=== PATIENT | male | born 1965 | race Caucasian/White ===

== ENCOUNTER 2024-08-05 22:41 | Inpatient (IN) ==
[2024-08-05] MEDS: ASPIRIN CHEW 324 MG PO STA (23:00)
[2024-08-05] MEDS: NITROGLYCERIN SL 0.4 MG/TAB TAB SL PRN (23:01)
--- NOTE | 2024-08-05 23:01 | Emergency Department Note ---
History of Present Illness General Chief complaint: Shortness of Breath/Dyspnea Stated complaint: SOB, CHEST PAIN, Time Seen by Provider: 08/05/24 22:46 History of Present Illness Maximum Pain Intensity: 5 This 59-year-old male that smokes presents ER complaining of chest heaviness pressure and shortness of breath for the past few days steadily getting worse. Patient denies fever, chills, abdominal pain, flulike illness. He has had some hemoptysis. No prior history of heart disease. No prior clotting issues that he is aware of. No history of heart failure. Home Medications Medication Instructions Recorded Confirmed Type No Known Home Medications 08/05/24 08/05/24 History Allergies Allergy/AdvReac Type Severity Reaction Status Date / Time fentanyl AdvReac Severe Gastrointestinal Verified 08/05/24 23:57 Upset acetaminophen AdvReac Unknown GI SYMPTOMS Verified 08/05/24 23:57 Past Med/Surg History Problem List (Updated 08/06/24 @ 00:43 by Diana Orr PA-C) Acute pericardial effusion (Acute) Heart failure (Acute) Cervical strain (Acute) Contusion, knee (Acute) Fractured dental sabianism with loss of material (Acute) Knee injury (Acute) Low back pain (Acute) Lumbar strain (Acute) Pain, dental (Acute) Right rib fracture (Acute) Social History Smoking Status: Current every day smoker Tobacco Type: Cigarettes Preferred Language: Burkinan Feels Safe at Home: Yes Review of Systems A total of 10 systems reviewed and were otherwise negative Physical Exam Vital Signs Vital Signs - 24 hr 08/05/24 22:44 08/05/24 22:57 08/05/24 23:06 Temperature 36.6 C Temperature Source Temporal Artery Scan Pulse Rate 107 H 100 H Pulse Rate [Finger] 100 H Pulse Rate from SpO2 Sensor Respiratory Rate 18 24 Respiratory Effort / Characteristics Non-Labored Spontaneous Respiratory Depth Normal Normal Respiratory Pattern Regular Blood Pressure 138/100 Blood Pressure [Right Arm] 119/86 Blood Pressure Mean 112 Blood Pressure Mean [Right Arm] 97 Blood Pressure Position Sitting Pulse Oximetry 97 95 Oxygen Delivery Method Room Air Room Air Sepsis Recent Fever Within 48 Hours No Sepsis New/Unexplained Change in Mental Status N/A Sepsis Action Taken by Nursing No Action Required 08/05/24 23:08 08/05/24 23:10 08/05/24 23:11 Temperature Temperature Source Pulse Rate 96 H Pulse Rate [Finger] Pulse Rate from SpO2 Sensor Respiratory Rate 18 Respiratory Effort / Characteristics Non-Labored Spontaneous Respiratory Depth Respiratory Pattern Blood Pressure Blood Pressure [Right Arm] Blood Pressure Mean Blood Pressure Mean [Right Arm] Blood Pressure Position Pulse Oximetry 98 98 Oxygen Delivery Method Room Air Room Air Room Air Sepsis Recent Fever Within 48 Hours Sepsis New/Unexplained Change in Mental Status Sepsis Action Taken by Nursing 08/05/24 23:30 08/06/24 00:00 Temperature Temperature Source Pulse Rate 96 H 98 H Pulse Rate [Finger] Pulse Rate from SpO2 Sensor 98 H Respiratory Rate 24 22 Respiratory Effort / Characteristics Respiratory Depth Respiratory Pattern Blood Pressure 127/98 121/93 Blood Pressure [Right Arm] Blood Pressure Mean 107 99 Blood Pressure Mean [Right Arm] Blood Pressure Position Pulse Oximetry 98 96 Oxygen Delivery Method Sepsis Recent Fever Within 48 Hours Sepsis New/Unexplained Change in Mental Status Sepsis Action Taken by Nursing VITALS: Vitals are noted on the nurse's note and reviewed by myself. Vital signs stable. GENERAL: Pleasant male mildly diaphoretic, in no acute distress, nondiaphoretic, well-developed well-nourished. SKIN: Capillary reflex less than 2 seconds. HEENT: Normocephalic. PERRLA. EOMI. Nares patent. Mucous membranes moist. Neck is supple without nuchal rigidity. HEART: Regular rate and rhythm LUNGS: Clear to auscultation bilaterally without wheezes, rales or rhonchi. No retractions or accessory muscle use. ABDOMEN: Positive bowel sounds x 4. Normal tympanic percussion. Soft, nontender, without masses or organomegaly. Becerra sign negative. No guarding or rebound tenderness. no CVA tenderness MUSCULOSKELETAL: No gross musculoskeletal defects. Minimal pitting edema to the lower extremities. NEURO: Patient was alert and oriented to person place and time. No focal neurological deficits. Course Administered Medications Nitroglycerin (Nitroglycerin Sl 0.4 Mg/Tab Tab) 0.4 mg SL Q5M PRN PRN Reason: Chest Pain Stop: 09/04/24 22:55 Last Admin: 08/05/24 23:01 Dose: 0.4 mg Documented By: KAYA Discontinued Medications Aspirin (Aspirin Chew 324 Mg) 324 mg PO NOW STA Stop: 08/05/24 22:57 Last Admin: 08/05/24 23:00 Dose: 324 mg Documented By: KAYA Furosemide (Furosemide 40 Mg/4 Ml Vial) 40 mg IV ONE ONE Stop: 08/05/24 23:24 Last Admin: 08/05/24 23:34 Dose: 40 mg Documented By: KAYA Piperacillin Sod/Tazobactam Sod (Zosyn) 4.5 gm in 100 mls @ 200 mls/hr IV NOW ONE; Protocol Stop: 08/06/24 00:07 Last Admin: 08/06/24 00:15 Dose: 200 mls/hr Documented By: SUSANNA Ioversol (Optiray 320 125ml) 125 ml IV ONCE ONE Stop: 08/05/24 23:22 Last Admin: 08/05/24 23:21 Dose: 118 ml Documented By: ADRIANA Nitroglycerin (Nitroglycerin 2% Ointment 30gm Tube) 0.5 inch EXT NOW ONE Stop: 08/05/24 23:26 Last Admin: 08/05/24 23:34 Dose: 0.5 inch Documented By: KAYA Medical Decision Making Medical Records Attestation: I reviewed the patient's medical records. Home Medications Current Medication List: was personally reviewed by me Laboratory Data Attestation: I reviewed the patient's lab results. 08/05/24 23:00 08/05/24 23:00 Lab Results 08/05/24 08/05/24 Range/Units 23:00 23:25 WBC 11.49 H (4.8-10.8) K/ul RBC 4.92 (4.70-6.10) M/uL Hgb 14.7 (14.0-18.0) g/dl Hct 45.5 (42.0-52.0) % MCV 92.5 (80.0-100.0) fL MCH 29.9 (25.0-34.0) pg MCHC 32.3 (32.0-36.0) g/dL RDW Std Deviation 44.7 (36.4-46.3) fL RDW Coeff of Isaías 13.2 (11.5-14.5) % Plt Count 241 (130-400) K/uL MPV 10.4 (9.4-12.4) fL Immature Gran % (Auto) 0.3 % Neut % (Auto) 82.6 % Lymph % (Auto) 10.1 % Glades % (Auto) 5.5 % Eos % (Auto) 1.0 % Baso % (Auto) 0.5 % Neut # (Auto) 9.49 H (1.40-6.50) K/uL Lymph # (Auto) 1.16 L (1.20-3.40) K/uL Glades # (Auto) 0.63 H (0.11-0.59) K/uL Eos # (Auto) 0.12 (0.00-0.50) K/uL Baso # (Auto) 0.06 (0.00-0.20) K/uL Immature Gran # (Auto) 0.03 (0.01-0.20) K/uL Sodium 139 (136-145) mmol/L Potassium 4.6 (3.5-5.1) mmol/L Chloride 105 (98-107) mmol/L Carbon Dioxide 28 (21-32) mmol/L Anion Gap 6 (3-11) BUN 17 (6-23) mg/dl Creatinine 1.06 (0.6-1.4) mg/dl Est Cr Clr Drug Dosing 77.9 ml/min eGFR 79.85 BUN/Creatinine Ratio 16.0 (10-20) Glucose 159 H (70-99(Fasting)) mg/dl Calcium 9.3 (8.6-10.3) mg/dl Total Bilirubin 0.8 (0.2-1.0) mg/dl AST 23 (13-39) U/L ALT 47 (7-52) U/L Alkaline Phosphatase 85 (34-104) U/L Troponin I High Sens 27.0 H (0-20) pg/ml B-Natriuretic Peptide 860 H (0-100) pg/ml Total Protein 6.5 (6.0-8.3) gm/dl Albumin 3.9 (3.4-5.0) gm/dl Globulin 2.6 (2.5-4.0) gm/dl Albumin/Globulin Ratio 1.5 (0.9-2) Lipase 23 (11-82) U/L Imaging Data Attestation: I personally reviewed and interpreted this imaging study as follows: Radiologist's Impression: Chest CTA 08/05/24 22:57 Exam(s): CTA CHEST IV Amt: 118 ml optiray 320 EXAM: CT Angiography Chest With Intravenous Contrast CLINICAL HISTORY: Reported shortness of breath and chest pain over the few weeks, increasing over the last 2 days. TECHNIQUE: Axial computed tomographic angiography images of the chest with intravenous contrast. CTDI is 32.8 mGy and DLP is 729.78 mGy-cm. Automated exposure control was utilized for the study. A dose lowering technique was utilized adhering to the principles of ALARA. MIP reconstructed images were created and reviewed. COMPARISON: No relevant prior studies available. FINDINGS: Pulmonary arteries: Accounting for limitations with respiratory artifact, there is no definite evidence for pulmonary embolism. Aorta: The unenhanced thoracic aorta is normal in caliber. No thoracic aortic aneurysm. Lungs: Peribronchial cuffing, most notable in the right lower lobe with diffuse areas of interlobular septal thickening. In addition, there are asymmetric patchy opacities in the central and inferior right upper lobe. Pleural space: Mild to moderate right and moderate left pleural effusions, measuring up to 3.5 cm on the left. In addition, there is a subpulmonic component of the left pleural effusion measuring 4 cm in diameter. No loculation. No pneumothorax. Heart: Cardiomegaly of unknown chronicity with asymmetric dilation of the left ventricle. Trace pericardial effusion. Bones/joints: No acute fracture. No dislocation. Soft tissues: Unremarkable. Lymph nodes: Nonspecific scattered paratracheal and AP window lymph nodes. No enlarged lymph nodes. IMPRESSION: 1. Accounting for limitations with respiratory artifact, there is no definite evidence for pulmonary embolism. 2. Peribronchial cuffing, most notable in the right lower lobe with diffuse areas of interlobular septal thickening. In addition, there are asymmetric patchy opacities in the central and inferior right upper lobe. Findings are most consistent with interstitial edema. The airspace opacities are atypical for asymmetric alveolar edema, which raises the suspicion for subtle aspiration or pneumonia. 3. Mild to moderate right and moderate left pleural effusions, measuring up to 3.5 cm on the left. In addition, there is a subpulmonic component of the left pleural effusion measuring 4 cm in diameter. No loculation. 4. Cardiomegaly of unknown chronicity with asymmetric dilation of the left ventricle. Trace pericardial effusion. Electronically signed by: Aidan Milligan MD 08/05/24 23:37 PM [facility] Narrative Prior records/ancillary studies reviewed. Triage Nursing notes reviewed. Additional history obtained from family. The patient's history was concerning for chest pain. Differential diagnosis: Etiologies such as cardiac ischemia, aortic dissection, pulmonary embolism, pneumonia, pneumothorax, musculoskeletal, infections, pericarditis, myocarditis, esophageal rupture, gastrointestinal, as well as others were entertained. Physical examination: As above. ER treatment provided: An order was placed for continuous cardiac monitoring. The monitor shows a rate of 60-100 with a sinus rhythm per my interpretation. Aspirin and nitroglycerin Nitropaste and Zosyn On reassessment the patient felt better. Diagnostic interpretation by me: #1 the electrocardiogram was ordered for chest pain EKG: Poor baseline, normal sinus, left bundle, left axis, occasional PVC. Impression normal sinus rhythm with a left bundle branch block left axis deviation occasional PVC independently interpreted by myself I think arrhythmia is unlikely. EKG shows normal sinus rhythm with no interval abnormalities such as QT prolongation or WPW. There are no findings to suggest Brugada syndrome. Cardiac monitoring in the emergency department reveals no tachycardic or bradycardic dysrhythmia. Hypertrophic cardiomyopathy was considered but there are no clear historical elements pointing toward this. EKG is not suggestive. The QRS voltage is not extremely large and there are no suggestive Q waves. #2 EKG ordered for chest pain EKG: Normal sinus, left axis, left bundle, rate of 97. Impression left bundle branch block with a left axis deviation independently interpreted by myself The labs Independently Interpreted by myself revealed minimally elevated troponin repeat was ordered Imaging studies: CTA as above HEART SCORE: Hx: high/mod/low suspicion: 1 ECG: ST depression/nonspecific changes/normal: 1 Age: Greater than 65/45-64/less than 45: 1 Risk factors: (Hypertension, hyperlipidemia, diabetes, coronary disease, tobacco use, cocaine use): 1 Troponin: Greater than 2 times normal limits/1-2 times normal limits/normal: 1 Total: 5 Consultation: A consultation was placed with the hospitalist. The case was discussed and diagnostics were reviewed. The patient was evaluated in the ER for further treatment. Exam and history seen consistent with new onset heart failure. CTA was concerning for possible aspiration pneumonia. Patient was started on antibiotics. He felt better with nitroglycerin. Paste was applied. Patient was admitted to the medical service. By the evaluation outlined above emergent etiologies such as aortic dissection, pulmonary embolism, pneumothorax, gastrointestinal, as well as others were deemed relatively unlikely. The pt informed about the findings as listed above. All questions were answered and pleased with the treatment. The chart was completed utilizing [employer] Speech voice recognition software. Grammatical errors, random word insertions, pronoun errors, and incomplete sentences are an occassional consequence of this system due to software limitations, ambient noise, and hardware issues. Any formal questions or concerns about the content, text, or information contained within the body of this dictation should be directly addressed to the physician speech assistant for clarification. Impression & Plan Heart failure, Acute pericardial effusion Discharge Plan Visit Data Chief Complaint: Shortness of Breath/Dyspnea Stated Complaint: SOB, CHEST PAIN, ED Provider: Katie Oliva ED Midlevel Provider: Diana Orr Discharge Problem: Heart failure, Acute pericardial effusion Patient Disposition: Admitted As Inpatient Condition: Fair Forms Stand Alone Forms: [facility] Prescriptions Prescriptions: No Action No Known Home Medications Referrals Referrals: Dinah Lunsford PA-C [Outside Practitioners] - Discharge Problem: Heart failure Qualifiers: Heart failure type: unspecified Heart failure chronicity: acute Qualified Code(s): I50.9 - Heart failure, unspecified
[2024-08-05 23:19] LABS: Basophils # (auto) 0.06 K/uL (0.00-0.20); Basophils % (auto) 0.5 %; Eosinophils # (auto) 0.12 K/uL (0.00-0.50); Hematocrit (blood only) 45.5 % (42.0-52.0); Hemoglobin 14.7 g/dl (14.0-18.0); Immature Granulocytes # (auto) 0.03 K/uL (0.01-0.20); Immature Granulocytes % (auto) 0.3 %; Lymphocytes # (auto) 1.16 K/uL (1.20-3.40); Lymphocytes % (auto) 10.1 %; Mean Corpuscular Hemoglobin 29.9 pg (25.0-34.0); Mean Corpuscular Hgb Conc 32.3 g/dL (32.0-36.0); Mean Corpuscular Volume 92.5 fL (80.0-100.0); Mean Platelet Volume 10.4 fL (9.4-12.4); Monocytes # (auto) 0.63 K/uL (0.11-0.59); Monocytes % (auto) 5.5 %; Neutrophils # (auto) 9.49 K/uL (1.40-6.50); Neutrophils % (auto) 82.6 %; Platelet Count 241 K/uL (130-400); RDW Coefficient of Variation 13.2 % (11.5-14.5); RDW Standard Deviation 44.7 fL (36.4-46.3); Red Blood Count 4.92 M/uL (4.70-6.10); White Blood Count 11.49 K/ul (4.8-10.8)
[2024-08-05] MEDS: OPTIRAY 320 125ml IV ONE (23:21)
[2024-08-05 23:32] LABS: Albumin Globulin Ratio 1.5 (0.9-2); Albumin Level 3.9 gm/dl (3.4-5.0); Bilirubin,Total 0.8 mg/dl (0.2-1.0); Calcium 9.3 mg/dl (8.6-10.3); Creatinine Clr Calc Pharmacy 77.9 ml/min; Globulin 2.6 gm/dl (2.5-4.0); Potassium 4.6 mmol/L (3.5-5.1); Total Protein 6.5 gm/dl (6.0-8.3)
[2024-08-05] MEDS: FUROSEMIDE 40 MG/4 ML VIAL IV ONE (23:34)
[2024-08-05] MEDS: NITROGLYCERIN 2% OINTMENT 30GM TUBE EXT ONE (23:34)
--- NOTE | 2024-08-05 23:38 | CT Scan Report ---
Exam(s): CTA CHEST IV Amt: 118 ml optiray 320 EXAM: CT Angiography Chest With Intravenous Contrast CLINICAL HISTORY: Reported shortness of breath and chest pain over the few weeks, increasing over the last 2 days. TECHNIQUE: Axial computed tomographic angiography images of the chest with intravenous contrast. CTDI is 32.8 mGy and DLP is 729.78 mGy-cm. Automated exposure control was utilized for the study. A dose lowering technique was utilized adhering to the principles of ALARA. MIP reconstructed images were created and reviewed. COMPARISON: No relevant prior studies available. FINDINGS: Pulmonary arteries: Accounting for limitations with respiratory artifact, there is no definite evidence for pulmonary embolism. Aorta: The unenhanced thoracic aorta is normal in caliber. No thoracic aortic aneurysm. Lungs: Peribronchial cuffing, most notable in the right lower lobe with diffuse areas of interlobular septal thickening. In addition, there are asymmetric patchy opacities in the central and inferior right upper lobe. Pleural space: Mild to moderate right and moderate left pleural effusions, measuring up to 3.5 cm on the left. In addition, there is a subpulmonic component of the left pleural effusion measuring 4 cm in diameter. No loculation. No pneumothorax. Heart: Cardiomegaly of unknown chronicity with asymmetric dilation of the left ventricle. Trace pericardial effusion. Bones/joints: No acute fracture. No dislocation. Soft tissues: Unremarkable. Lymph nodes: Nonspecific scattered paratracheal and AP window lymph nodes. No enlarged lymph nodes. IMPRESSION: 1. Accounting for limitations with respiratory artifact, there is no definite evidence for pulmonary embolism. 2. Peribronchial cuffing, most notable in the right lower lobe with diffuse areas of interlobular septal thickening. In addition, there are asymmetric patchy opacities in the central and inferior right upper lobe. Findings are most consistent with interstitial edema. The airspace opacities are atypical for asymmetric alveolar edema, which raises the suspicion for subtle aspiration or pneumonia. 3. Mild to moderate right and moderate left pleural effusions, measuring up to 3.5 cm on the left. In addition, there is a subpulmonic component of the left pleural effusion measuring 4 cm in diameter. No loculation. 4. Cardiomegaly of unknown chronicity with asymmetric dilation of the left ventricle. Trace pericardial effusion. Electronically signed by: Aidan Milligan MD 08/05/24 23:37 PM
--- NOTE | 2024-08-06 00:03 | History & Physical Report ---
Date of Service August 06, 2024 Assessment & Plan (1) COVID-19: Plan: #Chest Pain #Shortness of Breath DDx including but not limited to - ACS, pericarditis, myocarditis, pericardial effusion, pleural effusion, PE, PNA, PTX, uncompensated HF, COPD. CT with pericardial effusion and bilateral pleural effusions. There may also be an underlying pneumonia. Ordered ECHO. Found to be covid positive. May be the cause of pleural and pericardial effusions. BNP elevated at 860. Trop peaked at 27.0. Some improvement with Lasix 40 mg IV. Continue diuresis as indicated. Started dex 6 mg. ED started Zosyn for possible aspiration/atypical pneumonia. No further abx ordered. Cardiology consult - appreciate recs. Did start daily ASA. Ordered lipids, TSH, HbA1c cards consult, ECHO Zosyn x 1, no further abx ordered diuresis as indicated dex 6 mg Q24H sputum Cx, blood Cx ordered maintain CP free - nitropaste, SL nitro, morphine HbA1c, TSH, lipids ordered (2) Acute pericardial effusion: Plan: Most likely reason for CP. ECHO and cardiology consult as above. If uncompensated HF would start GDMT. Could consider colchicine initiation 0.6 mg BID for acute pericardial inflammatory syndrome. (3) Pleural effusion: Plan: See above (4) Chest pain: Plan: Trop peaked at 27.0. (5) Tobacco use disorder: Plan: Declines nicotine patch. Would strongly recommend cessation. (6) Alcohol use disorder in remission: Plan: Continue with abstinence. Plan Code status: full DVT ppx: SCDs, ambulation FENGI: NPO until seen by cards Dispo: PCU/Tele Covid Precautions History of Present Illness Chief Complaint: CP/SOB Primary Care Provider: John Duval MD 59 y/o male presenting with progressive SOB, cough, and chest pressure. Symptoms started a few weeks ago with cough, congestion, and shortness of breath. Patient's cough is productive of dry/powdery green mucous. Has had occasional hemoptysis as well. Patient has also noticed worsening chest pressure/SOB when laying flat. Feels more comfortable standing up. He has had BLE ankle/foot swelling for some time. Has noticed increased swelling/tightness of his pants around the waist. No n/v/abdominal pain/calf pain/unilateral swelling. No fevers, but he has been having chills. 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 Was likely exposed to several respiratory irritants at that time without a mask. Friend who worked in the basement with him did also get sick, but improved more quickly. Patient is also a long time smoker. Previously smoking about a PPD, down to 1/2 PPD now. Was a prior heavy drinker for many years. No longer drinking. Patient was given 324 ASA chew, 40 mg IV Lasix, SL nitro, and nitro paste in the ED. Patient CP free upon my interview and breathing much more comfortably. CT Chest with bilateral pleural effusions. There may be an underlying pneumonia as well. Patient started on Zosyn in the ED. Patient has not seen in a doctor in some time, but does have an appointment scheduled for next week for routine care. No current home meds. Allergies Allergy/AdvReac Type Severity Reaction Status Date / Time fentanyl AdvReac Severe Gastrointestinal Verified 08/05/24 23:57 Upset acetaminophen AdvReac Unknown GI SYMPTOMS Verified 08/05/24 23:57 Home Medications Medication Instructions Recorded Confirmed Type No Known Home Medications 08/05/24 08/05/24 History Past Med/Surg History Problem List (Updated 08/06/24 @ 11:07 by Medhat Carias MD) Acute heart failure with reduced ejection fraction (HFrEF, <= 40%) Alcohol use disorder in remission Tobacco use disorder Chest pain Pleural effusion COVID-19 Acute pericardial effusion (Acute) Heart failure (Acute) Cervical strain (Acute) Contusion, knee (Acute) 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) Knee injury (Acute) Low back pain (Acute) Lumbar strain (Acute) Pain, dental (Acute) Right rib fracture (Acute) Social History Smoking Status: Current every day smoker Tobacco Type: Cigarettes Cigarettes Per Day: half a pack a day; Second Hand Exposure: No; Do You Dip or Chew Tobacco: No; Tobacco Cessation Education Requested by Patient: No Hx Alcohol Use: Yes Alcohol type: beer Hx Substance Use: No Preferred Language: Gabonese Communication Ability: Effective Shactor Required: No Beliefs That Will Affect Care: None Current Living Situation: Significant Other Current Living Situation Comment: lives at home w/ girlfriend Other Information That Helps Us Care for You: No Feels Safe at Home: Yes Safety Concerns: Feels Safe At This Time Assistive Devices: None Review of Systems 2 Review of Systems: See HPI Physical Exam 2 Physical Exam: Gen: patient appears older than stated age, no distress, mild discomfort with breathing HEENT: AT NC MMM Resp: Quiet at the bilateral bases, relatively good air movement, no wheezing/crackles noted, no increased work of breathing CV: RRR no m/r/g clinically well perfused 2+ pitting edema BLE Abd: soft, non-tender, non-distended MSK: no obvious deformities Skin: no rashes or bruising Neuro: alert and oriented Psych: appropriate mood and affect Results & Data Results & Data Vital Signs (Past 12 Hours) Vital Signs Temp Pulse Pulse Resp BP BP Pulse Ox 08/05/24 23:30 96 H 24 127/98 98 08/05/24 23:11 96 H 18 98 08/05/24 23:10 98 08/05/24 23:08 08/05/24 23:06 100 H 24 119/86 95 08/05/24 22:57 100 H 08/05/24 22:44 36.6 C 107 H 18 138/100 97 O2 Del Method 08/05/24 23:30 08/05/24 23:11 Room Air 08/05/24 23:10 Room Air 08/05/24 23:08 Room Air 08/05/24 23:06 Room Air 08/05/24 22:57 08/05/24 22:44 Room Air Laboratory Results 08/05/24 23:00 08/05/24 23:00 Diagnostic Findings Chest CTA 08/05/24 22:57 FINDINGS: Pulmonary arteries: Accounting for limitations with respiratory artifact, there is no definite evidence for pulmonary embolism. Aorta: The unenhanced thoracic aorta is normal in caliber. No thoracic aortic aneurysm. Lungs: Peribronchial cuffing, most notable in the right lower lobe with diffuse areas of interlobular septal thickening. In addition, there are asymmetric patchy opacities in the central and inferior right upper lobe. Pleural space: Mild to moderate right and moderate left pleural effusions, measuring up to 3.5 cm on the left. In addition, there is a subpulmonic component of the left pleural effusion measuring 4 cm in diameter. No loculation. No pneumothorax. Heart: Cardiomegaly of unknown chronicity with asymmetric dilation of the left ventricle. Trace pericardial effusion. Bones/joints: No acute fracture. No dislocation. Soft tissues: Unremarkable. Lymph nodes: Nonspecific scattered paratracheal and AP window lymph nodes. No enlarged lymph nodes. IMPRESSION: 1. Accounting for limitations with respiratory artifact, there is no definite evidence for pulmonary embolism. 2. Peribronchial cuffing, most notable in the right lower lobe with diffuse areas of interlobular septal thickening. In addition, there are asymmetric patchy opacities in the central and inferior right upper lobe. Findings are most consistent with interstitial edema. The airspace opacities are atypical for asymmetric alveolar edema, which raises the suspicion for subtle aspiration or pneumonia. 3. Mild to moderate right and moderate left pleural effusions, measuring up to 3.5 cm on the left. In addition, there is a subpulmonic component of the left pleural effusion measuring 4 cm in diameter. No loculation. 4. Cardiomegaly of unknown chronicity with asymmetric dilation of the left ventricle. Trace pericardial effusion. Supervising Physician Co-Signing Physician Notes Attending addendum: I have physically seen this patient, have supervised the medical residents activities, and agree with the H&P unless as otherwise noted. Assessment and Plan: Elevated troponin/pleural effusion left greater than right/acute CHF- The patient will be admitted to telemetry for serial cardiac enzymes, serial EKG's, cardiac rhythm monitoring and a 2-D echocardiogram with Dopplers. Troponin 27.0, with follow-up pending BNP 860 From the ED patient received the following: Aspirin 324 mg, furosemide 40 mg IV, Nitropaste 1/2 inch EKG with normal sinus rhythm with left bundle branch block, new compared to sinus bradycardia of 2017. No acute ST-T changes Aspirin 81 mg daily Furosemide 40 mg IV every morning Consult cardiology in the a.m. COVID- COVID precautions Give dexamethasone 6 mg IV every 24 hours Follow sputum culture and Gram stain Within the differential is possible pericardial effusion and pleural effusions secondary to COVID Tobacco use disorder- Patient prefers no nicotine patch Cessation counseling Alcohol use disorder in remission- Continued encouraged Resident Activity Tracking Resident Involvement: Resident Care Provided Care Provided: Adult Hospital Medicine
[2024-08-06] MEDS: PIPERACILLIN/TAZOBACTAM 4.5 GM/100 ML BAG IV ONE (00:15)
[2024-08-06 00:53] LABS: Magnesium 1.7 mg/dl (1.7-2.4)
[2024-08-06 00:56] LABS: Adenovirus PCR Not Detected (NotDetected); Bordetella parapertussis PCR Not Detected (NotDetected); Bordetella pertussis PCR Not Detected (NotDetected); Chlamydia pneumoniae PCR Not Detected (NotDetected); Coronavirus 229E PCR Not Detected (NotDetected); Coronavirus CoV-2 (COVID19)PCR DETECTED (NotDetected); Coronavirus HKU1 PCR Not Detected (NotDetected); Coronavirus NL63 PCR Not Detected (NotDetected); Coronavirus OC43PCR Not Detected (NotDetected); Human Metapneumovirus PCR Not Detected (NotDetected); Influenza A PCR Not Detected (NotDetected); Influenza B PCR Not Detected (NotDetected); Mycoplasma pneumoniae PCR Not Detected (NotDetected); Parainfluenza Virus 1 PCR Not Detected (NotDetected); Parainfluenza Virus 2 PCR Not Detected (NotDetected); Parainfluenza Virus 3 PCR Not Detected (NotDetected); Parainfluenza Virus 4 PCR Not Detected (NotDetected); Respiratory Syncytial VirusPCR Not Detected (NotDetected); Rhinovirus/Enterovirus PCR Not Detected (NotDetected)
[2024-08-06 01:09] LABS: Thyroid Stimulating Hormone 0.912 uIu/ml (0.300-4.500)
[2024-08-06] MEDS: dexAMETHasone 6 MG in SYRINGE 0 ML IV SCH (02:01)
[2024-08-06] MEDS ORDERED: ACETAMINOPHEN 500 MG TAB PO PRN (02:37)
[2024-08-06] MEDS ORDERED: POLYETHYLENE (MIRALAX) 17 GM PACK PO PRN (02:37)
[2024-08-06] MEDS ORDERED: ONDANSETRON INJ 2 MG/ML 2 ML VIAL IV PRN (02:37)
[2024-08-06] MEDS ORDERED: ALUMINUM/MAGNESIUM SUSP 30 ML UDC PO PRN (02:37)
[2024-08-06 03:14] LABS: INR 0.9 (0.9-1.1); Partial Thromboplastin Time 26 Seconds (21-31); Prothrombin Time 10.3 Seconds (9.0-12.0)
--- NOTE | 2024-08-06 07:35 | Electrocardiogram Report ---
Test Reason : Blood Pressure : */* mmHG Vent. Rate : 97 BPM Atrial Rate : 97 BPM P-R Int : 140 ms QRS Dur : 160 ms QT Int : 408 ms P-R-T Axes : 62 -40 104 degrees QTcB Int : 518 ms Normal sinus rhythm Possible Left atrial enlargement Left axis deviation Left bundle branch block Abnormal ECG No previous ECGs available Confirmed by Rod Myers ([id number]) on 08/06/2024 7:34:51 AM Referred By: REFERRED SELF Confirmed By: Rod Myers
[2024-08-06] MEDS: ASPIRIN 81 MG ECTAB PO SCH (08:13)
[2024-08-06] MEDS: FUROSEMIDE INJ 20 MG/2 ML VIAL IV ONE ×2 (08:13→15:25)
[2024-08-06 08:25] LABS: Hematocrit (blood only) 43.7 % (42.0-52.0); Mean Corpuscular Hemoglobin 30.5 pg (25.0-34.0); Mean Corpuscular Hgb Conc 34.3 g/dL (32.0-36.0); Mean Corpuscular Volume 88.8 fL (80.0-100.0); Mean Platelet Volume 10.8 fL (9.4-12.4); Platelet Count 259 K/uL (130-400); RDW Coefficient of Variation 12.9 % (11.5-14.5); RDW Standard Deviation 42.2 fL (36.4-46.3); Red Blood Count 4.92 M/uL (4.70-6.10); White Blood Count 11.17 K/ul (4.8-10.8)
[2024-08-06 08:52] LABS: BUN Creatinine Ratio 14.2 (10-20); Calcium 9.5 mg/dl (8.6-10.3); Chol HDL Ratio 3.7 (0-5); Creatinine Clr Calc Pharmacy 53.1 ml/min; Potassium 4.3 mmol/L (3.5-5.1)
[2024-08-06 09:07] LABS: Estimated Average Glucose 140 mg/dl; Hemoglobin A1C 6.5 % (4.5-5.6)
--- NOTE | 2024-08-06 09:51 | XCELERA ---
[id number]
[2024-08-06] MEDS: NICOTINE 14 MG/24 HR PATCH TD SCH (10:53)
--- NOTE | 2024-08-06 10:53 | Pre Anesthesia Assessment ---
Date of Service August 06, 2024 Pre Sedation Assessment Vital Signs Temp Pulse Pulse Resp BP BP Pulse Ox 08/06/24 07:56 98.1 F 90 18 117/78 91 08/06/24 02:59 08/06/24 02:38 97.7 F 99 H 18 125/79 99 08/06/24 02:30 96 H 08/06/24 01:30 92 H 20 120/77 94 08/06/24 01:00 93 H 22 119/81 97 08/06/24 00:52 93 H 22 116/86 96 08/06/24 00:00 98 H 22 121/93 96 08/05/24 23:30 96 H 24 127/98 98 08/05/24 23:11 96 H 18 98 08/05/24 23:10 98 08/05/24 23:08 08/05/24 23:06 100 H 24 119/86 95 08/05/24 22:57 100 H 08/05/24 22:44 97.9 F 107 H 18 138/100 97 O2 Del Method 08/06/24 07:56 Room Air 08/06/24 02:59 Room Air 08/06/24 02:38 Room Air 08/06/24 02:30 08/06/24 01:30 08/06/24 01:00 08/06/24 00:52 08/06/24 00:00 08/05/24 23:30 08/05/24 23:11 Room Air 08/05/24 23:10 Room Air 08/05/24 23:08 Room Air 08/05/24 23:06 Room Air 08/05/24 22:57 08/05/24 22:44 Room Air Cardiovascular + regular rate Respiratory + respiratory effort normal Pre-Sedation Airway Assessment Smoking Status: Current every day smoker Hx Sleep Apnea: No Hx Difficult Intubation: No Short, Thick Neck: No Thyromental Distance: < 3.5 Finger Breadths Oral Cavity: + Dental Abnormalities Mallampati Class: III ASA: ASA3 Procedure Planning Contraindications for Sedation: none Current Medications Reviewed: Yes Notes The planned sedation has been discussed with the patient. Informed Consent was obtained. I have identified the patient, determined the appropriateness of sedation and have assessed the patient immediately prior to the procedure. All medicine(s) and interventions are by my order.
--- NOTE | 2024-08-06 11:02 | Cardiology Consultation ---
Date of Consultation August 06, 2024 Assessment & Plan (1) Acute heart failure with reduced ejection fraction (HFrEF, <= 40%): 2. CardiomyopathyEF 10 to 15% with global LV dysfunction 3. Mild mitral regurgitation 4. Moderate CAD - 60-70% mRCA, 30-40% prox to mid LAD at bifurcation with 50% ostial D1 5. COVID-19 infection 6. History of alcohol abuse 7. Ongoing smoking 8. Borderline DM2 - A1c 6.5 Admitted with acute heart failure with new dilated cardiomyopathy, EF 15% in the setting of COVID-19 infection. Cardiac catheterization this morning shows nonobstructive CAD. Cardiomyopathy is nonischemic. Suspect likely viral. Also has heavy alcohol use history although reportedly significantly less for years. Has responded well to IV diuresis, negative almost 2 L, dyspnea/orthopnea improved. LV filling pressures still elevated on cath. Plan: Additional IV diuresis today, will give another dose of IV Lasix this afternoon Salt restriction, strict I's and O's, standing daily weight Possible transition to p.o. diuretics tomorrow Start GDMT. Start metoprolol 25 mg twice daily. Transition to Toprol-XL on discharge Start Entresto 2426 tonight, empagliflozin tomorrow. Check with case management to make feasible from cost standpoint MRA likely as an outpatient as BP allows Continue aspirin, start statin Referral to CHF program on discharge With NICM can defer LifeVest Will follow History of Present Illness Attending Physician: Diogenes Craig MD History of Present Illness Mr. Sun is a 59-year-old man seen today in the setting of new acute heart failure. At baseline patient healthy has chronic back issues but is on no medications. He has a history of heavy alcohol abuse but drastically cut back several years ago now mostly social. Ongoing smoker for 30 years. States for the last 3 weeks has had progressive shortness of breath associated with chest tightness primarily when lying down. For the last few days has been unable to sleep due to shortness of breath. Accompanied by bilateral lower extremity edema. During this time has also had intermittent fevers/chills and productive cough of green sputum. Yesterday he was encouraged to go to ED after had several episodes of mild hemoptysis. In ED viral panel positive for COVID-19. ECG showed left bundle branch block. HS TropI flat 2627. BNP elevated at 860. CTA negative for PE. Moderate bilateral pleural effusions with mild interstitial edema. Received IV Lasix x 1 yesterday and -1900 overnight. Also treated for COVID with steroids, remdesivir. Today reports breathing/chest tightness much improved, near baseline. Echocardiogram showed dilated LV with severe global LV dysfunction EF10-15%, mild MR. No real significant cardiac history. Reports palpitations years ago for which had Holter, echo that reportedly was unremarkable. 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 Lives with girlfriend. Family history: No known history of premature CAD, cardiomyopathy Allergies Allergy/AdvReac Type Severity Reaction Status Date / Time fentanyl AdvReac Severe Gastrointestinal Verified 08/05/24 23:57 Upset acetaminophen AdvReac Unknown GI SYMPTOMS Verified 08/05/24 23:57 Home Medications Medication Instructions Recorded Confirmed Type No Known Home Medications 08/05/24 08/05/24 History Patient History Social History Smoking Status: Current every day smoker Tobacco Type: Cigarettes Cigarettes Per Day: half a pack a day; Second Hand Exposure: No; Do You Dip or Chew Tobacco: No; Tobacco Cessation Education Requested by Patient: No Hx Alcohol Use: Yes Alcohol type: beer Hx Substance Use: No Preferred Language: Romansh Communication Ability: Effective Agriculture Specialist Required: No Beliefs That Will Affect Care: None Current Living Situation: Significant Other Current Living Situation Comment: lives at home w/ girlfriend Other Information That Helps Us Care for You: No Feels Safe at Home: Yes Safety Concerns: Feels Safe At This Time Assistive Devices: None Review of Systems Review of Systems: All systems reviewed & are unremarkable except as noted in HPI & below Physical Exam Physical Exam: General: Comfortable HEENT: Sclerae anicteric Lungs: Clear to auscultation bilaterally Cardiac: Regular rate and rhythm, no murmurs. No JVD Vascular: 2+ radial, PT pulses Abdomen: Soft, nontender Extremities: Well perfused, no peripheral edema Neuro: Nonfocal Psych: Alert orient x3, normal affect and mood Results & Data Vital Signs (Past 12 Hours) Vital Signs Temp Pulse Pulse Resp BP BP Pulse Ox 08/06/24 07:56 98.1 F 90 18 117/78 91 08/06/24 02:59 08/06/24 02:38 97.7 F 99 H 18 125/79 99 08/06/24 02:30 96 H 08/06/24 01:30 92 H 20 120/77 94 08/06/24 01:00 93 H 22 119/81 97 08/06/24 00:52 93 H 22 116/86 96 08/06/24 00:00 98 H 22 121/93 96 08/05/24 23:30 96 H 24 127/98 98 08/05/24 23:11 96 H 18 98 08/05/24 23:10 98 08/05/24 23:08 08/05/24 23:06 100 H 24 119/86 95 08/05/24 22:57 100 H O2 Del Method 08/06/24 07:56 Room Air 08/06/24 02:59 Room Air 08/06/24 02:38 Room Air 08/06/24 02:30 08/06/24 01:30 08/06/24 01:00 08/06/24 00:52 08/06/24 00:00 08/05/24 23:30 08/05/24 23:11 Room Air 08/05/24 23:10 Room Air 08/05/24 23:08 Room Air 08/05/24 23:06 Room Air 08/05/24 22:57 PG Care Time/CCT Total # of Minutes Spent Total Time Spent with Patient: Total time spent is greater than 50% in coordination of care (as documented) at patient's floor/unit and/or counseling patient: Coding Level of Care Code 39192 IN/OBS CONSULT LVL 4,60M Diagnoses Acute heart failure with reduced ejection fraction (HFrEF, <= 40%) I50.21
[2024-08-06] MEDS: MIDAZOLAM HCL 1 MG/ML 2ML VIAL ONE (11:23)
[2024-08-06] MEDS: niCARdipine 2,000 MCG/20 ML SYR ONE (11:23)
[2024-08-06] MEDS: HEPARIN (PORCINE) 1000 UNIT/ML 10 ML (CATH LAB USE ONLY) ONE (11:23)
[2024-08-06] MEDS: fentaNYL citrate PF 100 MCG/2 ML VIAL ONE (11:24)
[2024-08-06] MEDS: OPTIRAY 350 ONE (11:24)
[2024-08-06] MEDS: NITROGLYCERIN/D5W 100MCG/ML 20ML SYR ONE (11:25)
--- NOTE | 2024-08-06 11:26 | Post Anesthesia Assessment ---
Date of Service August 06, 2024 Post Sedation Assessment Vital Signs Temp Pulse Pulse Resp BP BP Pulse Ox 08/06/24 07:56 98.1 F 90 18 117/78 91 08/06/24 02:59 08/06/24 02:38 97.7 F 99 H 18 125/79 99 08/06/24 02:30 96 H 08/06/24 01:30 92 H 20 120/77 94 08/06/24 01:00 93 H 22 119/81 97 08/06/24 00:52 93 H 22 116/86 96 08/06/24 00:00 98 H 22 121/93 96 08/05/24 23:30 96 H 24 127/98 98 08/05/24 23:11 96 H 18 98 08/05/24 23:10 98 08/05/24 23:08 08/05/24 23:06 100 H 24 119/86 95 08/05/24 22:57 100 H 08/05/24 22:44 97.9 F 107 H 18 138/100 97 O2 Del Method 08/06/24 07:56 Room Air 08/06/24 02:59 Room Air 08/06/24 02:38 Room Air 08/06/24 02:30 08/06/24 01:30 08/06/24 01:00 08/06/24 00:52 08/06/24 00:00 08/05/24 23:30 08/05/24 23:11 Room Air 08/05/24 23:10 Room Air 08/05/24 23:08 Room Air 08/05/24 23:06 Room Air 08/05/24 22:57 08/05/24 22:44 Room Air Recovery Score Activity: Moves 4 extremities Respiration: Deep Breath/Cough Circulation: +/-20% PreAnes Value Consciousness: Fully Awake Oxygen Saturation: O2 needed for >90% Discharge Sedation Level of Care: Fast Track Phase II Post Sedation Plan On clinical assessment, the patient appears to have tolerated the sedation without complications. Patient is recovering as anticipated. Patient will continue to be monitored by nursing and may be discharged when sedation discharge criteria are met per below protocol. Upon Completions of procedure up to 15 minutes continue every 5 minute vital signs and the P.A.R. score; then discharge to a Phase I or Fast Track to Phase II per the following guidelines: * Discharge Patient to appropriate Phase II area if PAR is 8 or greater or return to pre- procedure baseline. The post - procedure orders will be as directed. * If PAR score is less than 8 or not return to pre-procedure baseline then sheyla ent will follow Phase I monitoring till PAR is reached for Phase II. The Phase I may be done in procedure room or may call to secure a Phase I area. * If naloxone or flumazenil are used for reversal, hold in Phase I for continued monitoring from when last reversal dose was given for a minimum of 60 minutes or longer pending the nurse and/or physician discretion of patient condition before discharge to Phase II. Please call the Sedation Physician to re-evaluate and complete post-note for discharge to Phase II area. Do NOT discharge from procedure sedation or Phase 1 until post- sedation e valuation note is complete by procedure /sedation MD Sedation Discharge Instructions to be given to the patient at discharge to home.
--- NOTE | 2024-08-06 11:36 | Cardiac Catheterization ---
[facility] Data: [employer] D[employer] Cardiac Status Clinical evaluation leading to the procedure CAD Presenation: Sx unlikely to be ischemic Heart Failure: NYHA Class: CCS IV Diagnostic Physicians Name: Medhat Carias MD Closure Device Recommendations: Medical Therapy and/or Counseling Cardiac Cath Procedure Full Procedure Date August 06, 2024 Pre-Procedure Diagnosis Pre-Procedure Diagnosis: CHF and Cardiomyopathy AUC Score AUC Score: 7 Post-Procedure Diagnosis Post-Procedure Diagnosis: Moderate CAD and Elevated Intracardiac Pressures Procedure(s) Performed Procedure(s) Performed: Coronary Angiography and Left Heart Cath Agricultural Labor [employer] Manager Medhat Carias MD Forepart Rounder(s) Efrain Estimated Blood Loss Estimated Blood Loss: 5 Medication(s) Medication(s): Fentanyl, Heparin, Lidocaine 1%, Nicardipine, Nitroglycerin and Versed Summary of Findings Indication: Cardiomyopathy, severe LV dysfunction, acute heart failure Access: 6 Fr slender right radial artery Catheters: Clio Findings: LM -normal caliber, no significant disease LAD -medium caliber, 30 to 40% proximal to mid stenosis across takeoff of D1. Remainder of vessel without significant disease and wraps around apex. Medium D1 with 4050% ostial. Circumflex -large-caliber, no significant disease. Gives off medium OM1 and left PLB without significant disease. RCA -medium caliber, dominant, 30% proximal to mid disease, 60-70% mid segment stenosis at takeoff of acute marginal. Distal vessel, PDA without significant disease. LVEDP -24 Arterial Closure: TR band Summary: 1. Moderate coronary artery disease -60-70% mid RCA 30-40% proximal to mid LAD involving bifurcation of D1. Medium D1 40-50% ostial 2. Elevated intracardiac filling pressure (LVEDP 24) Recommendations: No obstructive disease to explain patient's severe LV dysfunction. Cardiomyopathy is nonischemic. Recommend continued diuresis and initiation of GDMT for heart failure ASCVD risk factor modification for CAD Hemodynamics Rest Ao:: /66/77 Final Ao: 103/76/87 LV: 100/24 Recommendations Recommendations: Medical Therapy and/or Counseling Specimens Specimens: None Radiation Exposure (mGy) 618 Contrast (mls) 40 Anesthesia Moderate 4789-1415 Procedural Complication(s) None Disposition PCU I attest to the content of the Intraoperative Record and any orders documented therein. Any exceptions are noted below. [facility] Card Cath Procedure Codes Cardiac Catheterization Procedure 1: Cardiovascular Cath Procedures: 23257 Coronaries and LHC (+/-LV) Moderate Sedation Procedure 1: Sedation/Anesthesia: 76378 Mod Sedation by the same physician;Init15 Min Child Age 5 & Up PG Care Time/CCT Total # of Minutes Spent Total Time Spent with Patient: Total time spent is greater than 50% in coordination of care (as documented) at patient's floor/unit and/or counseling patient:
[2024-08-06] MEDS: REMDESIVIR 200 MG in SODIUM CHLORIDE 0.9% 210 ML IV STA (12:45)
[2024-08-06] MEDS: METOPROLOL TARTRATE 25 MG TAB PO SCH (12:45)
[2024-08-06] MEDS ORDERED: STAT IV Infusion **Titration per Protocol STA (14:25)
[2024-08-06] MEDS ORDERED: 0.2 MICRON FILTER SET 1 EACH IV STA (14:25)
[2024-08-06] MEDS ORDERED: AMIODARONE IV BOLUS & DRIP IV STA (14:25)
--- NOTE | 2024-08-06 14:28 | Hospitalist Progress Note ---
Date of Service August 06, 2024 Assessment & Plan (1) Acute heart failure with reduced ejection fraction (HFrEF, <= 40%): Plan: patient presented with clinical & radiographic evidence of acute CHF. echo this am with SEVERELY depressed LV function --> EF 10-15%, global hypokinesis noted. he received IV lasix yesterday and again this am. s/p left heart cath by Dr Carias from [facility]. this demonstrated moderate CAD but not severe enough to cause the degree of LV dysfunction noted. thus, his severe systolic CHF is due to non-ischemic cardiomyopathy - see #2 below. started on metoprolol tartrate 25mg BID along with Jardiance & low-dose Entresto for goal-directed medical therapy. appreciate cardiology assistance. (2) Nonischemic cardiomyopathy: Plan: severely dilated CM with EF 10-15%. with COVID+ status --> viral cardiomyopathy? long-standing history of alcohol dependence --> alcohol-induced cardiomyopathy? nutritional deficiency leading to cardiomyopathy? other etiology? check Fe studies am. check B1 level am. consider other w/u -- SPEP/UPEP, etc. see #1 above re: medical therapies added. his clinical course was complicated by wide-complex tachycardia today --> see #3 below. (3) Wide-complex tachycardia: Plan: 1-minute long episode of either polymorphic VT vs torsades. self-terminated. no shocks/ACLS measures needed to terminate the event fortunately. following the event IV mag sulfate was given. was loaded with amiodarone 150mg IV x 1 followed by drip, but after discussion the drip was stopped due to mildly prolonged QTc on baseline EKG. plan is for BiV pacer/ICD implantation tomorrow - likely by Dr Chang Sparks. cont monitoring. cont beta maria c. keep mag >2 and K >4. (4) Tobacco use disorder: Plan: nicoderm patch, if desired. (5) COVID-19: Plan: patient tested + for such at time of admission. ? of mild pneumonitis seen on CT chest (vs all pulmonary edema from his CHF). patient has been ill for several weeks - uncertain when his COVID began, however. in light of severity of illness would continue IV dexamethasone for now and add Remdesivir for up to 5 days in duration. LFTs are wnl. repeat ast/alt am. cont airborne precautions. (6) Syncope and collapse: Plan: 2nd to wide complex tachycardia as above (7) Type 2 diabetes mellitus: Plan: hemoglobin a1c 6.5% c/w early DM will d/w patient novolog per ICU protocol BSGs ac/hs DM diet (8) Alcohol dependence: Plan: long-standing history of such beer/liquor only brief periods of sobriety per his daughter at high risk of withdrawal consider gabapentin protocol check B1 level in am then thiamine high-dose would add folate/MVI supplements as well alcohol could have played a role in the development of his cardiomyopathy (9) CAD (coronary artery disease): Plan: s/p left heart cath today by Dr Carias -- Findings: LM -normal caliber, no significant disease LAD -medium caliber, 30 to 40% proximal to mid stenosis across takeoff of D1. Remainder of vessel without significant disease and wraps around apex. Medium D1 with 4050% ostial. Circumflex -large-caliber, no significant disease. Gives off medium OM1 and left PLB without significant disease. RCA -medium caliber, dominant, 30% proximal to mid disease, 60-70% mid segment stenosis at takeoff of acute marginal. Distal vessel, PDA without significant disease. BB, asa, statin, etc all added for such treat the CHF (10) LBBB (left bundle branch block): Plan: 2nd to non-ischemic CM see above discussion (11) Elevated troponin: Plan: minimal elevation likely myocardial demand ischemia in setting of acute CHF, COVID infection, etc. no evidence of ACS Plan patient transferred to ICU following code blue/code purple care d/w Dr Chang Carias from cardiology care d/w Dr Kirby from ICU daughter, Kiera, extensively updated by phone this evening very complex care coordination in this sick gentleman total care time today about 90 minutes including attendance at code Admission and Anticipated Discharge Date Admission Date: August 06, 2024 Subjective events of last 24 hours noted patient had undergone heart catheterization earlier today by Dr Chang Carias after echo revealed EF 10-15% cath results as follows - Findings: LM -normal caliber, no significant disease LAD -medium caliber, 30 to 40% proximal to mid stenosis across takeoff of D1. Remainder of vessel without significant disease and wraps around apex. Medium D1 with 4050% ostial. Circumflex -large-caliber, no significant disease. Gives off medium OM1 and left PLB without significant disease. RCA -medium caliber, dominant, 30% proximal to mid disease, 60-70% mid segment stenosis at takeoff of acute marginal. Distal vessel, PDA without significant disease. no intervention taken of any vessel following his cath patient returned to his room code rachel was called after about 1 minute of wide complex tachycardia was noted (either torsades vs polymorphic VT) he did have loss of consciousness during the event fortunately the arrhythmia self-terminated and he did not require shocks or other ACLS measures see separate communication note re: such patient transferred to ICU following the above code I had a lengthy phone conversation with the patient's daughter Kiera by phone this evening discussed all medical issues pertaining to her father including COVID+ status, cardiomyopathy, arrhythmia, probable BiV pacer/ICD implantation tomorrow, etc. questions answered Review of Systems Review of Systems: gen - feels poorly in general, weak, fatigued cv - no chest pain pulm - mild cough; no dyspnea at rest GI - no abd pain Physical Exam Physical Exam: gen - overall looks poorly, thin, but no pain; NAD neck - mild JVD present mouth - MMM heart - RRR, s1 s2, no murmur lungs - decreased BS bases, otherwise CTA b/l abd - soft NT ND BS+ ext - no edema, pulses 2+ b/l feet psych - a/o x 3 Results & Data Results & Data Vital Signs (Past 12 Hours) Vital Signs Temp Pulse Pulse Resp BP Pulse Ox O2 Del Method 08/06/24 13:25 36.4 C L 80 18 109/76 97 Room Air 08/06/24 12:45 83 14 121/82 95 Room Air 08/06/24 12:22 87 20 117/80 98 Room Air 08/06/24 11:51 36.6 C 87 20 97/66 L 95 Room Air 08/06/24 09:07 Room Air 08/06/24 07:56 36.7 C 90 18 117/78 91 Room Air 08/06/24 02:59 Room Air 08/06/24 02:38 36.5 C 99 H 18 125/79 99 Room Air 08/06/24 02:30 96 H Laboratory Results Laboratory Results - last 24 hr 08/05/24 08/06/24 08/06/24 23:00 04:44 08:09 WBC 11.17 H RBC 4.92 Hgb 15.0 Hct 43.7 MCV 88.8 MCH 30.5 MCHC 34.3 RDW Std Deviation 42.2 RDW Coeff of Isaías 12.9 Plt Count 259 MPV 10.8 PT 10.3 INR 0.9 APTT 26 PTT Ratio 1.0 Sodium 140 Potassium 4.3 Chloride 103 Carbon Dioxide 30 Anion Gap 7 BUN 17 Creatinine 1.20 Est Cr Clr Drug Dosing 53.1 eGFR 68.80 BUN/Creatinine Ratio 14.2 Glucose 164 H Estimat Average Glucose 140 Hemoglobin A1c 6.5 H Calcium 9.5 Phosphorus 3.4 Magnesium 1.7 Triglycerides 57 Cholesterol 168 LDL Cholesterol, Calc 111 VLDL Cholesterol, Calc 11 HDL Cholesterol 46 Cholesterol/HDL Ratio 3.7 Procalcitonin < 0.02 Diagnostic Findings Chest CTA 08/05/24 22:57 Exam(s): CTA CHEST IV Amt: 118 ml optiray 320 EXAM: CT Angiography Chest With Intravenous Contrast CLINICAL HISTORY: Reported shortness of breath and chest pain over the few weeks, increasing over the last 2 days. TECHNIQUE: Axial computed tomographic angiography images of the chest with intravenous contrast. CTDI is 32.8 mGy and DLP is 729.78 mGy-cm. Automated exposure control was utilized for the study. A dose lowering technique was utilized adhering to the principles of ALARA. MIP reconstructed images were created and reviewed. COMPARISON: No relevant prior studies available. FINDINGS: Pulmonary arteries: Accounting for limitations with respiratory artifact, there is no definite evidence for pulmonary embolism. Aorta: The unenhanced thoracic aorta is normal in caliber. No thoracic aortic aneurysm. Lungs: Peribronchial cuffing, most notable in the right lower lobe with diffuse areas of interlobular septal thickening. In addition, there are asymmetric patchy opacities in the central and inferior right upper lobe. Pleural space: Mild to moderate right and moderate left pleural effusions, measuring up to 3.5 cm on the left. In addition, there is a subpulmonic component of the left pleural effusion measuring 4 cm in diameter. No loculation. No pneumothorax. Heart: Cardiomegaly of unknown chronicity with asymmetric dilation of the left ventricle. Trace pericardial effusion. Bones/joints: No acute fracture. No dislocation. Soft tissues: Unremarkable. Lymph nodes: Nonspecific scattered paratracheal and AP window lymph nodes. No enlarged lymph nodes. IMPRESSION: 1. Accounting for limitations with respiratory artifact, there is no definite evidence for pulmonary embolism. 2. Peribronchial cuffing, most notable in the right lower lobe with diffuse areas of interlobular septal thickening. In addition, there are asymmetric patchy opacities in the central and inferior right upper lobe. Findings are most consistent with interstitial edema. The airspace opacities are atypical for asymmetric alveolar edema, which raises the suspicion for subtle aspiration or pneumonia. 3. Mild to moderate right and moderate left pleural effusions, measuring up to 3.5 cm on the left. In addition, there is a subpulmonic component of the left pleural effusion measuring 4 cm in diameter. No loculation. 4. Cardiomegaly of unknown chronicity with asymmetric dilation of the left ventricle. Trace pericardial effusion. Electronically signed by: Aidan Milligan MD 08/05/24 23:37 PM Left heart Catheterization - Dr Chang Carias: Findings: LM -normal caliber, no significant disease LAD -medium caliber, 30 to 40% proximal to mid stenosis across takeoff of D1. Remainder of vessel without significant disease and wraps around apex. Medium D1 with 4050% ostial. Circumflex -large-caliber, no significant disease. Gives off medium OM1 and left PLB without significant disease. RCA -medium caliber, dominant, 30% proximal to mid disease, 60-70% mid segment stenosis at takeoff of acute marginal. Distal vessel, PDA without significant disease. PG Care Time/CCT Total # of Minutes Spent Total Time Spent with Patient: Total time spent is greater than 50% in coordination of care (as documented) at patient's floor/unit and/or counseling patient: Prolonged Care Time Prolonged Care Time: Yes Total Prolonged Care Time: 90 Coding Level of Care Code 81452 SUB INP/OBS CARE 3/50MIN (25 - SIGNIFICANT, SEPARATELY IDENTIFIABLE ) Diagnoses Acute heart failure with reduced ejection fraction (HFrEF, <= 40%) I50.21 Nonischemic cardiomyopathy I42.8 Wide-complex tachycardia R00.0 Tobacco use disorder F17.200 COVID-19 U07.1 Syncope and collapse R55 Type 2 diabetes mellitus E11.9 Alcohol dependence F10.20 CAD (coronary artery disease) I25.10 LBBB (left bundle branch block) I44.7 Elevated troponin R79.89 Additional Codes Prolonged Care Time - Prolonged Care Time: Yes ([id number])
[2024-08-06] MEDS ORDERED: MAGNESIUM SULFATE / D5W 1 GM/100 ML BAG IV SCH (14:30)
[2024-08-06] MEDS: AMIODARONE 150MG / 100ML D5W IV ONE (14:37)
[2024-08-06] MEDS: AMIODARONE / D5W 150 MG/100 ML BAG IV STA (14:38)
[2024-08-06] MEDS: MAGNESIUM SULFATE / D5W 1 GM/100 ML BAG IV SCH (14:54)
[2024-08-06] MEDS: AMIODARONE / D5W 360 MG/200 ML BAG IV ONE (15:00)
[2024-08-06] MEDS: AMIODARONE 360MG / 200ML D5W IV ONE (15:24)
--- NOTE | 2024-08-06 15:30 | Critical Care Consultation ---
Date of Consultation August 06, 2024 Assessment & Plan (1) LBBB (left bundle branch block): (2) CAD (coronary artery disease): (3) Nonischemic cardiomyopathy: (4) Syncope and collapse: (5) Acute heart failure with reduced ejection fraction (HFrEF, <= 40%): (6) Tobacco use disorder: (7) V tach: (8) COVID-19: Plan Reason Critically Ill: 59-year-old male presented to the hospital for shortness of breath. Patient had initially CODE BLUE called on the floor which was turned to code purple for V. tach Past medical history: Chronic lower back pain Neuro - [facility] ICU: Negative --History of alcohol abuse Quit drinking heavy 5 years ago Currently drinks 1 beer on a daily basis Cardiac - --V. tach I think the etiology is most likely non-ischemic cardiomyopathy Keep potassium greater than 4, magnesium greater than 2, phosphorus greater than 3 -- Nonischemic cardiomyopathy with pericardial effusion S/p cardiac cath 08/06/2024 which showed moderate coronary artery disease but no intervention was needed Patient does have history of alcohol abuse but he quit heavy drinking 5 years ago Continue with diuresis --Prolonged QTc QTc 533 on EKG 08/06/2024 Patient also has left bundle branch block, Respiratory - CT chest 08/05/2024 personally reviewed: Centrilobular emphysema appreciated bilaterally Interlobular thickening Patchy opacities appreciated in the right upper lobe Bilateral pleural effusion, left greater than right Cardiomegaly Minimal mediastinal lymphadenopathy -- Acute hypoxic respiratory failure Likely secondary to bilateral pleural effusion from systolic CHF BNP 860 Respiratory BioFire positive for COVID on 08/05/2024 BiPAP nightly and as needed shortness of breath O2 supplementation to keep oxygen saturation between 90-92% -- COVID-19 positive Refer to ID GI - -- No acute issues RENAL/LYTES - -- Monitor BUNs/creatinine Avoid nephrotoxic medication ENDO - -- ICU hypoglycemia protocol HEME - -- Monitor H&H ID - -- COVID-19 Unsure if Covid-19 is anything to do when it comes to the opacities within the lungs Covid-19 has been associated with pericardial effusion as well as nonischemic cardiomyopathy, patient also has alcohol abuse which could be one of the reasons for nonischemic cardiomyopathy I think it is reasonable to continue with dexamethasone as well as remdesivir --Prophylaxis VTE: IPC GI: None Lines: Peripheral Diet: Cardiac Plan: Strict in and out Keep potassium greater than 4, magnesium greater than 2, phosphorus greater than 3 Magnesium was 1.7 today, 4 g of magnesium will be given to the patient. Repeat labs around 7 PM Given the prolonged QTc, I would be careful with amiodarone. Patient's heart rate is already in the 50s. If he gets V. tach I do not think he will be able to tolerate more beta-blockers. BiPAP nightly and as needed shortness of breath I have personally spent 63 minutes of critical care time in the direct management of this patient. This is a life/limb threatening event. This includes time spent evaluating patient, direct bedside care, chart review, placing orders, interpretation of diagnostic studies, discussion with consultants, patient, and family members, as well as other required patient management activities. This time is exclusive of all separately billable procedures, and teaching time and separate from and in addition to any other critical care service time. History of Present Illness Attending Physician: Diogenes Craig MD History of Present Illness 59-year-old male presented to the hospital for shortness of breath Past medical history: Chronic lower back pain Patient had initially CODE BLUE called on the floor which was turned to code purple for V. tach Patient just had a cardiac cath done today which showed moderate coronary artery disease but nothing significant for stenting Patient was transferred to the ICU for further monitoring At the time of examination in the ICU patient denied any chest pain He did state that he has been having issues with breathing going on for approximately 3 weeks He had subjective fever and chills. He was not in respiratory distress. Respiratory was in the mid to high teens Heart rate was in the 50s. Systolic blood pressure was 95 with MAP still 68 Denied any chest pain, no abdominal pain No nausea vomiting No headache, no blurry vision. Social history: Approximately [id number] smoking history. Used to be a heavy drinker, quit heavy drinking 5 years ago, currently drinking beer a day Allergies Allergy/AdvReac Type Severity Reaction Status Date / Time fentanyl AdvReac Severe Gastrointestinal Verified 08/05/24 23:57 Upset acetaminophen AdvReac Unknown GI SYMPTOMS Verified 08/05/24 23:57 Home Medications Medication Instructions Recorded Confirmed Type No Known Home Medications 08/05/24 08/05/24 History Patient History Social History Smoking Status: Current every day smoker Tobacco Type: Cigarettes Cigarettes Per Day: half a pack a day; Second Hand Exposure: No; Do You Dip or Chew Tobacco: No; Tobacco Cessation Education Requested by Patient: No Hx Alcohol Use: Yes Alcohol type: beer Hx Substance Use: No Preferred Language: Canadian Communication Ability: Effective Ear Muff Assembler Required: No Beliefs That Will Affect Care: None Current Living Situation: Significant Other Current Living Situation Comment: lives at home w/ girlfriend Other Information That Helps Us Care for You: No Feels Safe at Home: Yes Safety Concerns: Feels Safe At This Time Assistive Devices: None Review of Systems 2 Review of Systems: All systems reviewed & are unremarkable except as noted in HPI & below Physical Exam 2 Physical Exam: Constitutional: No acute distress HEENT: EOMI, PERRLA Respiratory system: Decreased air entry bilaterally, no wheeze, no rhonchi, positive crackles bilateral lower lobe CVS: S1-S2 positive Abdomen: Soft, nontender, nondistended, positive bowel sounds x4 Extremities: +2 pulses bilaterally radialis/ dorsalis pedis, no cyanosis, +2 pitting edema bilateral lower extremity Neuro: Awake alert oriented x3 Psych: Normal mood and affect G/U: No Olivares Skin: no rashes, warm and dry Lymphatic: no cervical or axillary lymphadenopathy Results & Data Results & Data Vital Signs (Past 12 Hours) Vital Signs Temp Pulse Resp BP Pulse Ox O2 Del Method 08/06/24 13:25 36.4 C L 80 18 109/76 97 Room Air 08/06/24 12:45 83 14 121/82 95 Room Air 08/06/24 12:22 87 20 117/80 98 Room Air 08/06/24 11:51 36.6 C 87 20 97/66 L 95 Room Air 08/06/24 09:07 Room Air 08/06/24 07:56 36.7 C 90 18 117/78 91 Room Air Laboratory Results 08/06/24 04:44 08/06/24 04:44 Coding Level of Care Code 95312 CRITICAL CARE 1ST 30-74M Diagnoses LBBB (left bundle branch block) I44.7 CAD (coronary artery disease) I25.10 Nonischemic cardiomyopathy I42.8 Syncope and collapse R55 Acute heart failure with reduced ejection fraction (HFrEF, <= 40%) I50.21 Tobacco use disorder F17.200 V tach I47.20 COVID-19 U07.1
--- NOTE | 2024-08-06 15:30 | Communication Note ---
Date of Service: August 06, 2024 Steve ramos note - Responded to steve ramos called overhead earlier this afternoon. Upon arrival staff members report a near 1-minute episode of wide complex tachycardia -- either polymorphic VT vs torsades. When this was seen on monitoring nursing staff immediately went into the room and found him unconscious. Patient hooked up to defibrillator/monitor (pads placed) and 12-lead EKG obtained as well. When I entered the room in PPE (patient is COVID+) he was cyanotic/ashen in appearance but able to answer questions. Thus, he was w/o consciousness for a minute or less. He denied chest pain or dyspnea. He did not have any prodromal symptoms prior to the event. EKG with NSR and LBBB. Initial set of vitals were wnl including O2 sats. Mag level this am was 1.7 --> 2 grams mag sulfate IV to be given STAT. Dr Carias came to bedside -- plan to load with amiodarone 150mg x 1 now followed by infusion. To transfer to ICU for closer monitoring as he is at high risk of recurrent ventricular arrhythmia given his severely depressed EF of 10-15%. Cath report reviewed in detail - CAD of moderate degree found but nothing requiring intervention & not severe enough to result in his cardiomyopathy. Post-COVID CM? Will update family with afternoon events. Diogenes Craig MD
[2024-08-06 16:14] LABS: Phosphorus 3.4 mg/dl (2.5-4.9)
[2024-08-06 18:27] LABS: BUN Creatinine Ratio 15.4 (10-20); Calcium 9.3 mg/dl (8.6-10.3); Creatinine Clr Calc Pharmacy 40.9 ml/min; Phosphorus 4.9 mg/dl (2.5-4.9); Potassium 4.3 mmol/L (3.5-5.1)
[2024-08-06] MEDS ORDERED: AMIODARONE / D5W 360 MG/200 ML BAG IV SCH (20:30)
[2024-08-06] MEDS: VALSARTAN/SACUBITRIL 26/24MG TAB PO SCH (20:39)
[2024-08-06] MEDS ORDERED: METOPROLOL TARTRATE 25 MG TAB PO SCH (21:00)
--- NOTE | 2024-08-06 21:27 | Electrocardiogram Report ---
Test Reason : Blood Pressure : */* mmHG Vent. Rate : 69 BPM Atrial Rate : 69 BPM P-R Int : 132 ms QRS Dur : 168 ms QT Int : 498 ms P-R-T Axes : 33 20 212 degrees QTcB Int : 533 ms Normal sinus rhythm Left bundle branch block Abnormal ECG When compared with ECG of 05-Aug-2024 23:35, QRS axis Shifted right Confirmed by Rod Myers ([id number]) on 08/06/2024 9:26:47 PM Referred By: REFERRED SELF Confirmed By: Rod Myers
--- NOTE | 2024-08-06 22:04 | Billing Data ---
Date of Service August 06, 2024 Coding Level of Care Code 50466 INT INP/OBS CARE
[2024-08-07 05:34] LABS: Basophils # (auto) 0.05 K/uL (0.00-0.20); Basophils % (auto) 0.4 %; Eosinophils # (auto) 0.09 K/uL (0.00-0.50); Eosinophils % (auto) 0.7 %; Hematocrit (blood only) 47.6 % (42.0-52.0); Hemoglobin 16.1 g/dl (14.0-18.0); Immature Granulocytes # (auto) 0.04 K/uL (0.01-0.20); Immature Granulocytes % (auto) 0.3 %; Lymphocytes # (auto) 1.62 K/uL (1.20-3.40); Lymphocytes % (auto) 13.3 %; Mean Corpuscular Hemoglobin 29.9 pg (25.0-34.0); Mean Corpuscular Hgb Conc 33.8 g/dL (32.0-36.0); Mean Corpuscular Volume 88.5 fL (80.0-100.0); Mean Platelet Volume 10.8 fL (9.4-12.4); Monocytes % (auto) 6.5 %; Neutrophils # (auto) 9.62 K/uL (1.40-6.50); Neutrophils % (auto) 78.8 %; Platelet Count 292 K/uL (130-400); RDW Coefficient of Variation 13.1 % (11.5-14.5); RDW Standard Deviation 42.3 fL (36.4-46.3); Red Blood Count 5.38 M/uL (4.70-6.10); White Blood Count 12.22 K/ul (4.8-10.8)
[2024-08-07 05:40] LABS: Albumin Level 3.6 gm/dl (3.4-5.0); Bilirubin,Total 0.8 mg/dl (0.2-1.0); Calcium 9.1 mg/dl (8.6-10.3); Potassium 4.1 mmol/L (3.5-5.1)
[2024-08-07 05:47] LABS: Albumin Globulin Ratio 1.3 (0.9-2); BUN Creatinine Ratio 20.1 (10-20); Creatinine Clr Calc Pharmacy 47.6 ml/min; Globulin 2.8 gm/dl (2.5-4.0); Total Protein 6.4 gm/dl (6.0-8.3)
[2024-08-07 05:55] LABS: Magnesium 2.3 mg/dl (1.7-2.4)
[2024-08-07 06:02] LABS: Phosphorus 3.8 mg/dl (2.5-4.9)
[2024-08-07 06:06] LABS: Ferritin 145.2 ng/ml (8-388)
[2024-08-07 06:10] LABS: Folate (Folic Acid),Ser orPlas 11.29 ng/ml (>5.38)
--- NOTE | 2024-08-07 08:05 | Critical Care Progress Note ---
Date of Service August 07, 2024 Assessment & Plan (1) LBBB (left bundle branch block): (2) CAD (coronary artery disease): (3) Nonischemic cardiomyopathy: (4) Syncope and collapse: (5) Acute heart failure with reduced ejection fraction (HFrEF, <= 40%): (6) Tobacco use disorder: (7) V tach: (8) COVID-19: Plan Reason Critically Ill: 59-year-old male presented to the hospital for shortness of breath. Patient had initially CODE BLUE called on the floor which was turned to code purple for V. tach Past medical history: Chronic lower back pain Neuro - [facility] ICU: Negative --History of alcohol abuse Quit drinking heavy 5 years ago Currently drinks 1 beer on a daily basis Cardiac - --V. tach I think the etiology is most likely non-ischemic cardiomyopathy Keep potassium greater than 4, magnesium greater than 2, phosphorus greater than 3 -- Nonischemic cardiomyopathy with pericardial effusion S/p cardiac cath 08/06/2024 which showed moderate coronary artery disease but no intervention was needed Patient does have history of alcohol abuse but he quit heavy drinking 5 years ago Continue with diuresis 2D echo 08/06/2024: EF 10-15%, severe global LV dysfunction, mild concentric LVH, normal PA and RA pressures --Prolonged QTc QTc 533 on EKG 08/06/2024 Patient also has left bundle branch block, Respiratory - CT chest 08/05/2024 personally reviewed: Centrilobular emphysema appreciated bilaterally Interlobular thickening Patchy opacities appreciated in the right upper lobe Bilateral pleural effusion, left greater than right Cardiomegaly Minimal mediastinal lymphadenopathy -- Acute hypoxic respiratory failure Likely secondary to bilateral pleural effusion from systolic CHF BNP 860 Respiratory BioFire positive for COVID on 08/05/2024 BiPAP nightly and as needed shortness of breath O2 supplementation to keep oxygen saturation between 90-92% -- COVID-19 positive Refer to ID section GI - -- No acute issues RENAL/LYTES - -- Monitor BUNs/creatinine Avoid nephrotoxic medication ENDO - -- ICU hypoglycemia protocol HEME - -- Monitor H&H ID - -- COVID-19 Unsure if Covid-19 is anything to do when it comes to the opacities within the lungs Covid-19 has been associated with pericardial effusion as well as nonischemic cardiomyopathy, patient also has alcohol abuse which could be one of the reasons for nonischemic cardiomyopathy I think it is reasonable to continue with dexamethasone as well as remdesivir --Prophylaxis VTE: IPC GI: None Lines: Peripheral Diet: Cardiac Plan: In/out: -2.5 L, urine output 3401 Patient is planned to have an AICD placed today. He was unfortunate not able to tolerate BiPAP, I still think he is going of benefit from BiPAP. Continue with dexamethasone for total of 10 days. No more V. tach overnight. If the patient is doing well post pacemaker then okay to downgrade to telemetry floor Will consider giving the patient additional Lasix based on how his urine output is during the day. Please note the above document was generated using voice recognition software. It may contain grammatical, syntax or spelling errors.Any formal questions or concerns about the content, text or information contained within the body of this dictation should be directly addressed to the provider for clarification. Admission and Anticipated Discharge Date Admission Date: August 06, 2024 Subjective Patient seen and examined at bedside. No acute distress, no adverse events overnight Unfortunately was not able to tolerate BiPAP more than 2 hours He was saturating 95 to 96% on 2 L. If he is awake his saturation is not an issue where when he is sleeping his saturation does go down Diuresing well Denied any chest pain, no dizziness No overnight V. tach Review of Systems 2 Review of Systems: All systems reviewed & are unremarkable except as noted in Subjective Physical Exam 2 Physical Exam: Constitutional: No acute distress HEENT: EOMI, PERRLA Respiratory system: Decreased air entry bilaterally, no wheeze, no rhonchi, positive crackles bilateral lower lobe CVS: S1-S2 positive Abdomen: Soft, nontender, nondistended, positive bowel sounds x4 Extremities: +2 pulses bilaterally radialis/ dorsalis pedis, no cyanosis, +2 pitting edema bilateral lower extremity Neuro: Awake alert oriented x3 Psych: Normal mood and affect G/U: No Olivares Skin: no rashes, warm and dry Lymphatic: no cervical or axillary lymphadenopathy Results & Data Results & Data Vital Signs (Past 12 Hours) Vital Signs Temp Pulse Pulse Resp BP BP Pulse Ox 08/07/24 07:19 89 L 08/07/24 07:00 36.8 C 62 16 136/93 89 L 08/07/24 06:12 63 10 L 95/43 L 91 08/07/24 05:03 66 11 L 102/66 89 L 08/07/24 04:03 62 10 L 86/59 L 93 08/07/24 03:03 77 12 118/87 90 08/07/24 02:03 68 18 107/64 93 08/07/24 01:11 63 16 90/59 L 92 08/07/24 00:11 60 21 108/77 91 08/07/24 00:00 65 08/06/24 23:27 63 19 94 08/06/24 23:05 63 17 99/68 L 92 08/06/24 22:06 64 14 109/80 93 08/06/24 21:09 70 16 110/88 91 08/06/24 20:27 73 18 118/91 92 08/06/24 20:03 70 19 97/73 L 92 O2 Del Method FiO2 08/07/24 07:19 Room Air 08/07/24 07:00 Room Air 08/07/24 06:12 08/07/24 05:03 08/07/24 04:03 08/07/24 03:03 08/07/24 02:03 08/07/24 01:11 08/07/24 00:11 08/07/24 00:00 08/06/24 23:27 21 08/06/24 23:05 08/06/24 22:06 08/06/24 21:09 08/06/24 20:27 08/06/24 20:03 Laboratory Results 08/07/24 04:43 08/07/24 04:43 Coding Level of Care Code 90185 SUB INP/OBS CARE 3/50MIN Diagnoses LBBB (left bundle branch block) I44.7 CAD (coronary artery disease) I25.10 Nonischemic cardiomyopathy I42.8 Syncope and collapse R55 Acute heart failure with reduced ejection fraction (HFrEF, <= 40%) I50.21 Tobacco use disorder F17.200 V tach I47.20 COVID-19 U07.1
[2024-08-07 09:58] LABS: iSTAT Creatinine 1.2 mg/dl (0.6-1.3); iSTAT Hemoglobin 15.3 g/dl (14.0-18.0); iSTAT Ionized Calcium 1.22 mmol/l (1.12-1.32); iSTAT Potassium 4.6 mmol/L (3.3-5.0)
[2024-08-07] MEDS: EMPAGLIFLOZIN 10 MG TAB PO SCH (10:29)
[2024-08-07] MEDS: REMDESIVIR 100 MG in SODIUM CHLORIDE 0.9% 230 ML IV SCH (11:16)
--- NOTE | 2024-08-07 15:49 | Electrophysiology Report ---
Date of Service August 07, 2024 Electrophysiology Procedure Electrophysiology Procedure Report Procedure performed: Implantation of biventricular ICD Staff retail agent: Medhat Sparks MD Indication: The patient is a 59-year-old gentleman with a recently discovered nonischemic cardiomyopathy. The day prior to device implant the patient suffered an episode of sustained ventricular tachycardia and loss of consciousness. He was felt to be a good candidate for an ICD as secondary prevention against sudden cardiac . A biventricular device was selected as he is also known to have a left bundle branch block with a QRS duration greater than 150 ms. He presented with [place] [employer] class III symptoms. Procedure in detail: The patient was informed of the risks benefits and alternatives to the intended procedure and she wished to proceed. He was taken to the electrophysiology suite in a fasting state. A preoperative antibiotic had been administered. The patient was monitored electrocardiographically throughout today's procedure and conscious sedation was administered per protocol. The left upper pectoral area was prepped and draped in usual sterile fashion. This area was anesthetized using subcutaneous administration of a xylocaine solution. An incision was made at this site and carried down to the prepectoralis fascia using sharp dissection. Electrocautery was also employed for dissection as well as for hemostasis. A device pocket was fashioned tissues above the pectoralis muscle. Subsequent to this maneuver the left axillary vein was accessed using modified Seldinger technique. Sheath was placed over guidewire and used to facilitate passage of the ICD lead to the right ventricular apex under fluoroscopic guidance. Adequate sensing and threshold parameters were obtained prior to active fixation of this lead to the endocardial surface. The proximal portion lead was then sutured to the prepectoralis fat using nonabsorbable suture. A sheath was placed over another guidewire and use facilitate passage of the right atrial lead under fluoroscopic guidance. Adequate sensing and threshold parameters were obtained prior to active fixation of this lead to the endocardial surface. The proximal portion lead was then sutured the prepectoralis fascia using nonabsorbable suture. Sheath was site over the remaining guidewire and used to facilitate passage of a guiding catheter for engagement of the coronary sinus. Once engaged, limited coronary sinus venography was performed in order to identify a suitable target vessel. The initial vessel was not large enough to accommodate the lead and a second branch of the coronary sinus was then used for placement of the left ventricular pacing lead. Adequate sensing and threshold parameters as well as the absence of diaphragmatic stimulation at high output were confirmed prior to removal of the guiding catheter. The proximal portion of the lead was then sutured prepectoralis fascia. The device pocket was irrigated with antibiotic solution. The leads were then attached to the device. The device and leads were then placed in the pocket and pocket was closed in 3 layers of absorbable suture. Steri-Strips and sterile dressing were applied. The device was tested jordana nvasively prior to conclusion the procedure. The patient tolerated procedure well there no immediate complications. Equipment used: New pulse generator: [employer]. Model number: [id number] serial number [id number] Right atrial lead: [employer] Medtronic. Model number: 5076 serial number [id number] Right ventricular lead: [employer] Medtronic. Model number: 6935M serial nu [id number] [id number] Coronary sinus lead: [employer] Med[employer]. Model #4298 serial number [id number] Measured data: Right atrial lead: P waves measured 2 mV. Pacing threshold was 0.75 V at 0.4 ms with a pacing impedance of 627 ohms Right ventricular lead: R waves measured 13.8 mV. Pacing threshold was 0.5 V at 0.4 ms with a pacing impedance of 551 ohms Coronary sinus lead: In the LV 1 to RV coil configuration the pacing threshold was 0.5 V at 0.4 ms with a pacing impedance of 437 ohms Impression: Successful implantation of biventricular ICD MNP Electrophysiology codes Pacing Procedure 1: Pacin BiV electrode w/Pacer / ICD implant, add on code ICD Procedure 1: ICD: 17769 Insert single or dual ICD system
[2024-08-07] MEDS ORDERED: oxyCODONE HCL IR 5 MG TAB (IMMEDIATE RELEASE) PO PRN (15:51)
[2024-08-07] MEDS: BUPIVACAINE 0.25% PF 30 ML VIAL ONE (15:56)
[2024-08-07] MEDS: MIDAZOLAM HCL 5 MG/ML 1 ML VIAL ONE (15:57)
[2024-08-07] MEDS: VANCOMYCIN HCL 1000MG/20ML VIAL ONE (15:57)
[2024-08-07] MEDS: LIDOCAINE 1% LOCAL 20 ML VIAL ONE ×2 (15:57→15:58)
[2024-08-07] MEDS: WATER, STERILE FOR INJ 10 ML VIAL ONE (15:57)
[2024-08-07] MEDS: ceFAZolin 330 MG/ML 1 GM VIAL ONE (15:58)
[2024-08-07] MEDS: CEROVITE ADV FORMULA TAB PO SCH (17:01)
[2024-08-07] MEDS: ATORVASTATIN 40 MG TAB PO SCH (17:01)
[2024-08-07] MEDS: FOLIC ACID 1 MG TAB PO SCH (17:01)
[2024-08-07] MEDS: THIAMINE HCL 100 MG TAB PO SCH (17:02)
[2024-08-07] MEDS: FUROSEMIDE INJ 20 MG/2 ML VIAL IV ONE (17:22)
[2024-08-07 17:35] VITALS: TEMP 98.4
--- NOTE | 2024-08-07 18:20 | Hospitalist Progress Note ---
Date of Service August 07, 2024 Assessment & Plan (1) Acute heart failure with reduced ejection fraction (HFrEF, <= 40%): Plan: patient presented with clinical & radiographic evidence of acute CHF. echo with SEVERELY depressed LV function --> EF 10-15%, global hypokinesis noted. he has received IV lasix since admission with improved volume status & symptoms. s/p left heart cath by Dr Carias [facility]. this demonstrated moderate CAD but not severe enough to cause the degree of LV dysfunction noted. thus, his severe systolic CHF is due to non-ischemic cardiomyopathy - see #2 below. continue metoprolol tartrate 25mg BID; ultimately change to meto succ. continue along with Jardiance. continue low-dose Entresto. to receive additional IV lasix today. s/p ICD/BiV pacer today by Dr Sparks. appreciate cardiology assistance. repeat labs am. (2) Nonischemic cardiomyopathy: Plan: severely dilated CM with EF 10-15%. with COVID+ status --> viral cardiomyopathy? long-standing history of alcohol dependence --> alcohol-induced cardiomyopathy? nutritional deficiency leading to cardiomyopathy? other etiology? Fe studies wnl thus no hemochromatosis. B1 level pending --> will treat empirically while awaiting level. consider other w/u -- SPEP/UPEP, etc. see #1 above re: medical therapies added. his clinical course was complicated by wide-complex tachycardia yesterday now s/p ICD placement. (3) Wide-complex tachycardia: Plan: 1-minute long episode of either polymorphic VT vs torsades on 08/06/24. self-terminated. no shocks/ACLS measures needed to terminate the event fortunately. the tachycardia led to syncope. 2nd to severe LV dysfunction/nonischemic CM. s/p BiV pacer/ICD implantation today by Dr Chang Sparks. appreciate his assistance. cont beta maria c. keep mag >2 and K >4. (4) V tach: Plan: as above (5) Tobacco use disorder: Plan: nicoderm patch, if desired. (6) COVID-19: Plan: patient tested + for such at time of admission. ? of mild pneumonitis seen on CT chest (vs all pulmonary edema from his CHF). patient has been ill for several weeks - uncertain when his COVID began, however. in light of severity of illness would continue IV dexamethasone for now and continue Remdesivir for up to 5 days in duration. day #2 of each today. LFTs are wnl. repeat ast/alt am. cont airborne precautions. (7) Syncope and collapse: Plan: 2nd to wide complex tachycardia as above no recurrence since then (8) Type 2 diabetes mellitus: Plan: hemoglobin a1c 6.5% c/w early DM will d/w patient novolog per ICU protocol BSGs ac/hs DM diet (9) Alcohol dependence: Plan: long-standing history of such beer/liquor only brief periods of sobriety per his daughter at high risk of withdrawal consider gabapentin protocol - but defer for now no signs of withdrawal to date B1 level pending start thiamine 200mg BID add folate/MVI supplements alcohol could have played a role in the development of his cardiomyopathy (10) CAD (coronary artery disease): Plan: s/p left heart cath today by Dr Carias -- Findings: LM -normal caliber, no significant disease LAD -medium caliber, 30 to 40% proximal to mid stenosis across takeoff of D1. Remainder of vessel without significant disease and wraps around apex. Medium D1 with 4050% ostial. Circumflex -large-caliber, no significant disease. Gives off medium OM1 and left PLB without significant disease. RCA -medium caliber, dominant, 30% proximal to mid disease, 60-70% mid segment stenosis at takeoff of acute marginal. Distal vessel, PDA without significant disease. BB, asa, statin, etc all added for such treat the CHF (11) LBBB (left bundle branch block): Plan: 2nd to non-ischemic CM see above discussion (12) Elevated troponin: Plan: minimal elevation likely myocardial demand ischemia in setting of acute CHF, COVID infection, etc. no evidence of ACS (13) ALBA (acute kidney injury): Plan: peak Cr 1.5 yesterday improved today repeat BPM in am likely cardiorenal in the setting of severe LV dysfunction Plan care briefly d/w Dr Kirby from ICU daughter, Kiera, extensively updated by phone 08/06/24 Admission and Anticipated Discharge Date Admission Date: August 06, 2024 Subjective no VT overnight underwent BiV pacer/ICD placement today I saw Mr Dino following his procedure was resting in bed comfortably stated "he felt much better today" less dyspnea less orthopnea no chest pain no edema eating ok Review of Systems Review of Systems: gen - no fevers or chills cv - no PND pulm - mild cough, no sputum GI - no N/V Physical Exam Physical Exam: gen - looks tired, but overall is improved from yesterday neck - mild JVD present mouth - MMM heart - RRR, s1 s2, no murmur lungs - decreased BS bases, rales L base; no wheezing abd - soft NT ND BS+ ext - no edema, pulses 2+ b/l feet psych - a/o x 3 chest - dressings intact L upper chest, no hematoma noted Results & Data Results & Data Vital Signs (Past 12 Hours) Vital Signs Temp Pulse Pulse Resp BP BP Pulse Ox 08/07/24 17:58 64 08/07/24 17:55 115/83 08/07/24 17:42 63 17 95 08/07/24 17:35 66 08/07/24 17:34 36.9 C 08/07/24 17:30 63 17 94 08/07/24 17:25 98/69 L 08/07/24 17:25 98/69 L 08/07/24 17:15 62 14 94 08/07/24 17:09 67 15 94 08/07/24 16:56 100/72 08/07/24 16:51 72 15 94 08/07/24 16:42 68 19 96 08/07/24 16:33 60 17 97 08/07/24 16:25 08/07/24 16:21 62 19 96 08/07/24 16:15 62 19 95 08/07/24 16:12 88/63 L 08/07/24 16:12 88/63 L 08/07/24 16:12 88/63 L 08/07/24 16:12 88/63 L 08/07/24 13:09 57 L 10 L 98 08/07/24 13:03 57 L 12 99 08/07/24 12:52 124/91 08/07/24 12:51 67 16 98 08/07/24 12:03 55 L 16 95 08/07/24 11:52 96/65 L 08/07/24 11:52 96/65 L 08/07/24 11:51 57 L 14 96 08/07/24 11:28 36.6 C 57 L 16 106/71 95 08/07/24 11:00 54 L 12 94 08/07/24 10:52 106/71 08/07/24 10:48 55 L 16 93 08/07/24 10:09 56 L 12 95 08/07/24 09:52 101/79 08/07/24 09:51 60 14 94 08/07/24 09:03 73 14 93 08/07/24 08:52 120/85 08/07/24 08:52 120/85 08/07/24 08:36 66 12 96 08/07/24 08:15 62 13 94 08/07/24 08:00 63 08/07/24 08:00 08/07/24 08:00 08/07/24 07:19 89 L 08/07/24 07:00 60 10 L 91 08/07/24 07:00 36.8 C 62 16 136/93 89 L 08/07/24 06:56 136/93 08/07/24 06:56 136/93 08/07/24 06:52 107/64 08/07/24 06:51 60 17 95 08/07/24 06:24 62 10 L 87 L Pulse Ox O2 Del Method O2 Del Method O2 Flow Rate O2 Flow Rate 08/07/24 17:58 08/07/24 17:55 08/07/24 17:42 08/07/24 17:35 08/07/24 17:34 08/07/24 17:30 08/07/24 17:25 08/07/24 17:25 08/07/24 17:15 08/07/24 17:09 08/07/24 16:56 08/07/24 16:51 08/07/24 16:42 08/07/24 16:33 08/07/24 16:25 Nasal Cannula 3 08/07/24 16:21 08/07/24 16:15 08/07/24 16:12 08/07/24 16:12 08/07/24 16:12 08/07/24 16:12 08/07/24 13:09 08/07/24 13:03 08/07/24 12:52 08/07/24 12:51 08/07/24 12:03 08/07/24 11:52 08/07/24 11:52 08/07/24 11:51 08/07/24 11:28 Nasal Cannula 2 08/07/24 11:00 08/07/24 10:52 08/07/24 10:48 08/07/24 10:09 08/07/24 09:52 08/07/24 09:51 08/07/24 09:03 08/07/24 08:52 08/07/24 08:52 08/07/24 08:36 08/07/24 08:15 08/07/24 08:00 08/07/24 08:00 Nasal Cannula 2 08/07/24 08:00 94 Nasal Cannula 2 08/07/24 07:19 Room Air 08/07/24 07:00 08/07/24 07:00 Room Air 08/07/24 06:56 08/07/24 06:56 08/07/24 06:52 08/07/24 06:51 08/07/24 06:24 Laboratory Results Laboratory Results - last 24 hr 08/05/24 08/06/24 08/06/24 23:04 15:02 17:48 WBC RBC Hgb POC Hgb 15.3 Hct POC Hct 45 MCV MCH MCHC RDW Std Deviation RDW Coeff of Isaías Plt Count MPV Immature Gran % (Auto) Neut % (Auto) Lymph % (Auto) [place] % (Auto) Eos % (Auto) Baso % (Auto) Neut # (Auto) Lymph # (Auto) [place] # (Auto) Eos # (Auto) Baso # (Auto) Immature Gran # (Auto) POC Sodium 140 Sodium 136 POC Potassium 4.6 Potassium 4.3 POC Chloride 102 Chloride 99 Carbon Dioxide 27 POC Total CO2 23 L Anion Gap 10 POC Anion Gap 21.0 POC BUN 17 BUN 24 H Creatinine 1.56 H D POC Creatinine 1.2 Est Cr Clr Drug Dosing 40.9 eGFR 50.22 BUN/Creatinine Ratio 15.4 Glucose 147 H POC Glucose (other) 162 H Calcium 9.3 POC Ioniz Calcium [place] 1.22 Phosphorus 4.9 D Magnesium 2.8 H Iron TIBC Unsaturated IBC Transferrin % Sat Ferritin Total Bilirubin AST ALT Alkaline Phosphatase Total Protein Albumin Globulin Albumin/Globulin Ratio Vitamin B1 Vitamin B12 Folate Nasal Screen MRSA (PCR) Negative 08/07/24 04:43 WBC 12.22 H RBC 5.38 Hgb 16.1 POC Hgb Hct 47.6 POC Hct MCV 88.5 MCH 29.9 MCHC 33.8 RDW Std Deviation 42.3 RDW Coeff of Isaías 13.1 Plt Count 292 MPV 10.8 Immature Gran % (Auto) 0.3 Neut % (Auto) 78.8 Lymph % (Auto) 13.3 [place] % (Auto) 6.5 Eos % (Auto) 0.7 Baso % (Auto) 0.4 Neut # (Auto) 9.62 H Lymph # (Auto) 1.62 [place] # (Auto) 0.80 H Eos # (Auto) 0.09 Baso # (Auto) 0.05 Immature Gran # (Auto) 0.04 POC Sodium Sodium 136 POC Potassium Potassium 4.1 POC Chloride Chloride 100 Carbon Dioxide 29 POC Total CO2 Anion Gap 7 POC Anion Gap POC BUN BUN 27 H Creatinine 1.34 POC Creatinine Est Cr Clr Drug Dosing 47.6 eGFR 60.27 BUN/Creatinine Ratio 20.1 H Glucose 128 H POC Glucose (other) Calcium 9.1 POC Ioniz Calcium [place] Phosphorus 3.8 D Magnesium 2.3 Iron 68 TIBC 304 Unsaturated IBC 236 Transferrin % Sat 22 Ferritin 145.2 Total Bilirubin 0.8 AST 14 ALT 31 Alkaline Phosphatase 79 Total Protein 6.4 Albumin 3.6 Globulin 2.8 Albumin/Globulin Ratio 1.3 Vitamin B1 Pending Vitamin B12 354 Folate 11.29 Nasal Screen MRSA (PCR) PG Care Time/CCT Total # of Minutes Spent Total Time Spent with Patient: Total time spent is greater than 50% in coordination of care (as documented) at patient's floor/unit and/or counseling patient: Coding Level of Care Code 71595 SUB INP/OBS CARE 2/35MIN Diagnoses Acute heart failure with reduced ejection fraction (HFrEF, <= 40%) I50.21 Nonischemic cardiomyopathy I42.8 Wide-complex tachycardia R00.0 V tach I47.20 Tobacco use disorder F17.200 COVID-19 U07.1 Syncope and collapse R55 Type 2 diabetes mellitus E11.9 Alcohol dependence F10.20 CAD (coronary artery disease) I25.10 LBBB (left bundle branch block) I44.7 Elevated troponin R79.89 ALBA (acute kidney injury) N17.9
[2024-08-07] MEDS: ceFAZolin 1000MG 1,000 MG/7.5 ML SYR IV ONE (21:29)
[2024-08-08 05:36] LABS: BUN Creatinine Ratio 25.8 (10-20); Calcium 8.8 mg/dl (8.6-10.3); Creatinine Clr Calc Pharmacy 41.1 ml/min; Magnesium 2.3 mg/dl (1.7-2.4); Phosphorus 5.1 mg/dl (2.5-4.9); Potassium 4.1 mmol/L (3.5-5.1)
--- NOTE | 2024-08-08 07:50 | XRay Report ---
EXAM: XR chest 2V PA/lateral CLINICAL HISTORY: S/P PACEMAKER EVAL LEAD PLACEMENT EVAL FOR PNEUMOTHORX UNABLE TO RAISE LT ARM DUE TO IMPLANT ISELA/RAJAN/SABRA TECHNIQUE: An X-ray image of the chest is obtained in PA, and lateral projections. COMPARISON: 08/05/2024 CT chest FINDINGS: Interval placement of triple leads cardiac pacing. Pulmonary Parenchyma: Mild left pleural effusion. Bilateral prominent bronchial markings with peribronchial thickening. Right midzonal patchy opacities. Heart and Mediastinum: Heart size and shape are normal. No mediastinal widening or masses. No hilar or mediastinal lymphadenopathy. prominent aortic shadow with curvilinear atheromatous calcification. Bony Thorax: The bony thorax appears intact without fractures or deformities. Soft Tissues: Soft tissues overlying the chest wall are unremarkable. IMPRESSION: 1. Interval placement of triple leads cardiac pacing is seen in place. 2. Mild left pleural effusion. 3. Right midzonal patchy opacities, Likely inflammatory/ edema. 4. Clinical and laboratory correlation is recommended. 5. No gross interval changes. Electronically signed by Prateek Gonzalez 08-08-2024 07:50 AM
--- NOTE | 2024-08-08 08:32 | Critical Care Progress Note ---
Date of Service August 08, 2024 Assessment & Plan (1) LBBB (left bundle branch block): (2) CAD (coronary artery disease): (3) Nonischemic cardiomyopathy: (4) Syncope and collapse: (5) Acute heart failure with reduced ejection fraction (HFrEF, <= 40%): (6) Tobacco use disorder: (7) V tach: (8) COVID-19: Plan Reason Critically Ill: 59-year-old male presented to the hospital for shortness of breath. Patient had initially CODE BLUE called on the floor which was turned to code purple for V. tach Past medical history: Chronic lower back pain Neuro - [facility]: Negative --History of alcohol abuse Quit drinking heavy 5 years ago Currently drinks 1 beer on a daily basis Cardiac - --V. tach I think the etiology is most likely non-ischemic cardiomyopathy S/p AICD placement 08/07/2024 Keep potassium greater than 4, magnesium greater than 2, phosphorus greater than 3 -- Nonischemic cardiomyopathy with pericardial effusion S/p cardiac cath 08/06/2024 which showed moderate coronary artery disease but no intervention was needed Patient does have history of alcohol abuse but he quit heavy drinking 5 years ago Continue with diuresis 2D echo 08/06/2024: EF 10-15%, severe global LV dysfunction, mild concentric LVH, normal PA and RA pressures --Prolonged QTc QTc 533 on EKG 08/06/2024 Patient also has left bundle branch block, Respiratory - CT chest 08/05/2024 personally reviewed: Centrilobular emphysema appreciated bilaterally Interlobular thickening Patchy opacities appreciated in the right upper lobe Bilateral pleural effusion, left greater than right Cardiomegaly Minimal mediastinal lymphadenopathy -- Acute hypoxic respiratory failure Likely secondary to bilateral pleural effusion from systolic CHF BNP 860 Respiratory BioFire positive for COVID on 08/05/2024 BiPAP nightly and as needed shortness of breath O2 supplementation to keep oxygen saturation between 90-92% -- COVID-19 positive Refer to ID section GI - -- No acute issues RENAL/LYTES - -- Monitor BUNs/creatinine Avoid nephrotoxic medication ENDO - -- ICU hypoglycemia protocol HEME - -- Monitor H&H ID - -- COVID-19 Unsure if Covid-19 is anything to do when it comes to the opacities within the lungs Covid-19 has been associated with pericardial effusion as well as nonischemic cardiomyopathy, patient also has alcohol abuse which could be one of the reasons for nonischemic cardiomyopathy I think it is reasonable to continue with dexamethasone as well as remdesivir --Prophylaxis VTE: IPC GI: None Lines: Peripheral Diet: Cardiac Plan: In/out: -852 mL, urine output 1152, -4.3 L since coming to the hospital Chest x-ray from today shows good placement of the leads, no pneumothorax. Small left-sided pleural effusion Creatinine bumped to 1.55 today with elevated BUN. Hold diuretics today Complete the course of dexamethasone for total of 10 days. Defer remdesivir to primary team Hemodynamically stable to be downgrade to telemetry floor Recommend PT OT eval Please note the above document was generated using voice recognition software. It may contain grammatical, syntax or spelling errors.Any formal questions or concerns about the content, text or information contained within the body of this dictation should be directly addressed to the provider for clarification. Admission and Anticipated Discharge Date Admission Date: August 06, 2024 Subjective Patient seen and examined at bedside. No acute distress, nervous events overnight Got the AICD placed yesterday. Systolic blood pressures have been in the high 90s. His MAP is still greater than 65. Denies any nausea vomiting Does complain of still generalized lethargic Has been afebrile Review of Systems 2 Review of Systems: All systems reviewed & are unremarkable except as noted in Subjective Physical Exam 2 Physical Exam: Constitutional: No acute distress HEENT: EOMI, PERRLA Respiratory system: Decreased air entry bilaterally, no wheeze, no rhonchi, positive crackles bilateral lower lobe CVS: S1-S2 positive, left-sided AICD Abdomen: Soft, nontender, nondistended, positive bowel sounds x4 Extremities: +2 pulses bilaterally radialis/ dorsalis pedis, no cyanosis, +1 pitting edema bilateral lower extremity Neuro: Awake alert oriented x3 Psych: Normal mood and affect G/U: No Olivares Skin: no rashes, warm and dry Lymphatic: no cervical or axillary lymphadenopathy Results & Data Results & Data Vital Signs (Past 12 Hours) Vital Signs Pulse Resp BP Pulse Ox O2 Flow Rate 08/08/24 06:03 62 14 95/68 L 96 08/08/24 05:12 65 8 L 91/61 L 92 08/08/24 04:00 63 10 L 94/57 L 92 08/08/24 03:00 70 20 79/59 L 93 08/08/24 02:03 69 18 106/68 94 08/08/24 01:00 67 17 106/69 93 08/08/24 00:33 66 21 96/60 L 93 08/08/24 00:03 68 15 107/71 94 08/08/24 00:00 69 08/07/24 23:25 80 108/80 93 08/07/24 23:12 61 11 L 89/65 L 95 08/07/24 23:09 67 19 97 2 08/07/24 22:39 69 17 117/82 97 08/07/24 22:12 68 10 L 91/60 L 95 08/07/24 21:30 69 14 97/66 L 95 08/07/24 21:03 65 15 98/69 L 97 08/07/24 20:30 68 18 110/79 95 Laboratory Results 08/07/24 04:43 08/08/24 04:51 Coding Level of Care Code 13196 SUB INP/OBS CARE 2/35MIN Diagnoses LBBB (left bundle branch block) I44.7 CAD (coronary artery disease) I25.10 Nonischemic cardiomyopathy I42.8 Syncope and collapse R55 Acute heart failure with reduced ejection fraction (HFrEF, <= 40%) I50.21 Tobacco use disorder F17.200 V tach I47.20 COVID-19 U07.1
[2024-08-08] MEDS: HEPARIN SOD 5,000 UNIT/0.5 ML VIAL SQ SCH (09:20)
--- NOTE | 2024-08-08 09:43 | Cardiology Progress Note ---
Date of Service August 08, 2024 Assessment & Plan (1) Acute heart failure with reduced ejection fraction (HFrEF, <= 40%): (2) Nonischemic cardiomyopathy: (3) CAD (coronary artery disease): (4) LBBB (left bundle branch block): (5) V tach: Plan 1. Acute decompensated systolic heart failure: He seems to be well compensated currently. Euvolemic if not mildly hypovolemic. I do not think he requires any additional diuresis. 2. Nonischemic cardiomyopathy: He seems to be tolerating medical therapy. Continue Entresto, Jardiance and metoprolol succinate. We will monitor his renal functioning consider addition of spironolactone in the outpatient setting. 3. Ventricular fibrillation: He appeared to have ventricular fibrillation versus polymorphic ventricular tachycardia 2 days ago. He underwent implantation of an ICD for secondary prevention. He will continue on metoprolol. I do not think there is any utility to continuing amiodarone. 4. Coronary disease: Nonobstructive. Continue aspirin and atorvastatin 5. left bundle branch block: Patient underwent implantation of biventricular ICD yesterday for resynchronization. Venous anatomy is not favorable. Normal device function. We will have to monitor his response over time. 6. Normally functioning biventricular ICD. From cardiac standpoint the patient would appear stable for discharge on his current medical regimen He should refrain from lifting left arm above the shoulder or behind the neck for 6 weeks He will need to keep the left pectoral incision clean and dry with the Steri- Strips intact for 5 days. Will arrange for a wound check in our clinic next week He will need to refrain from vigorous use of the right wrist and hand for another 5 days. Admission and Anticipated Discharge Date Admission Date: August 06, 2024 Subjective This morning patient reported being tired. Did have some discomfort at the device implant site in left upper pectoral area. No breathing difficulty currently. Physical Exam Physical Exam: The patient is alert and oriented. Mood and affect appeared normal. He answered all questions appropriately. HEENT: Pupils are equal and reactive to light and accommodation. Extraocular movements are intact. The sclerae are anicteric. Neuro: Cranial nerves intact Chest: Device implant site in left upper pectoral area without hematoma. No drainage or erythema. Lungs: Normal respiratory Cardiac: Heart demonstrates a regular rate and rhythm. Normal S1 and S2. No murmurs on examination. Extremities: There was no evidence of hypoperfusion. There is no cyanosis or clubbing. Skin: I did not appreciate any rashes on examination today. Results & Data Vital Signs (Past 12 Hours) Vital Signs Pulse Resp BP Pulse Ox O2 Del Method O2 Flow Rate 08/08/24 08:54 63 14 95 08/08/24 08:43 Nasal Cannula 2 08/08/24 08:42 61 16 92 08/08/24 08:30 62 17 91 08/08/24 08:21 63 15 93 08/08/24 08:18 60 16 94 08/08/24 08:17 95/58 L 08/08/24 08:17 95/58 L 08/08/24 08:17 95/58 L 08/08/24 08:00 63 16 93 08/08/24 07:59 89/59 L 08/08/24 07:59 89/59 L 08/08/24 07:59 89/59 L 08/08/24 07:36 66 21 92 08/08/24 07:33 65 15 94 08/08/24 07:29 94/67 L 08/08/24 07:29 94/67 L 08/08/24 07:29 94/67 L 08/08/24 07:00 141/116 H 08/08/24 07:00 141/116 H 08/08/24 06:03 62 14 95/68 L 96 08/08/24 05:12 65 8 L 91/61 L 92 08/08/24 04:00 63 10 L 94/57 L 92 08/08/24 03:00 70 20 79/59 L 93 08/08/24 02:03 69 18 106/68 94 08/08/24 01:00 67 17 106/69 93 08/08/24 00:33 66 21 96/60 L 93 08/08/24 00:03 68 15 107/71 94 08/08/24 00:00 69 08/07/24 23:25 80 108/80 93 08/07/24 23:12 61 11 L 89/65 L 95 08/07/24 23:09 67 19 97 2 08/07/24 22:39 69 17 117/82 97 08/07/24 22:12 68 10 L 91/60 L 95 Laboratory Results Abnormal Lab Results 08/05/24 08/08/24 23:04 04:51 POC Hgb 15.3 POC Hct 45 POC Sodium 140 Sodium 135 L POC Potassium 4.6 Potassium 4.1 POC Chloride 102 Chloride 102 Carbon Dioxide 25 POC Total CO2 23 L Anion Gap 8 POC Anion Gap 21.0 POC BUN 17 BUN 40 H Creatinine 1.55 H POC Creatinine 1.2 Est Cr Clr Drug Dosing 41.1 eGFR 50.61 BUN/Creatinine Ratio 25.8 H Glucose 188 H POC Glucose (other) 162 H Calcium 8.8 POC Ioniz Calcium [place] 1.22 Phosphorus 5.1 H Magnesium 2.3 AST 16 ALT 23 Diagnostic Findings device interrogation revealed normal function of all 3 leads Chest x-ray demonstrated stable lead position without pneumothorax
[2024-08-08 15:30] VITALS: BP 106/71; PULSE 64; RESP 14; O2SAT 95
--- NOTE | 2024-08-08 15:45 | Discharge Summary ---
Discharge Summary Date of Service date of admission - August 06, 2024 date of discharge - August 08, 2024 Principal Dx & Hospital Course #1 = Principal Diagnosis (1) Acute heart failure with reduced ejection fraction (HFrEF, <= 40%): Patient presented with clinical & radiographic evidence of acute CHF. Echo with SEVERELY depressed LV function --> EF 10-15%, global hypokinesis noted. He received IV lasix since admission with improved volume status & symptoms. s/p left heart cath by Dr Chang Carias from [facility]. This demonstrated moderate CAD but not severe enough to cause the degree of LV dysfunction noted. Thus, his severe systolic CHF is due to non-ischemic cardiomyopathy - see #2 below. He was started on metoprolol tartrate 25mg BID; ultimately changed to metoprolol succinate 25mg daily at discharge. Jardiance 10mg daily initiated. Entresto low-dose BID started. He was given lasix 20mg tablets to use on prn basis for weight gain/edema. He ultimately underwent ICD/BiV pacemaker placement by Dr Chang Sparks while here. He will be set up with the [facility] - Ms Ibeth COLÓN - shortly after discharge. He was counseled on the importance of salt restriction, fluid restriction, alcohol abstinence, daily weights, and follow-up with cardiology. Written CHF instructions & other handouts were given. (2) Nonischemic cardiomyopathy: Severely dilated CM with EF 10-15%. With COVID+ status --> viral cardiomyopathy? He also has a long-standing history of alcohol dependence thus alcohol-induced cardiomyopathy is a very possible etiology. Nutritional deficiency leading to cardiomyopathy? Other etiology? Fe studies wnl thus no hemochromatosis. B1 level pending --> will treat empirically while awaiting level. Thiamine 200mg BID x 30 days. Consider other w/u -- SPEP/UPEP, etc. This can be done as outpatient. see #1 above re: medical therapies added. His clinical course was complicated by wide-complex tachycardia --> s/p ICD placement. (3) Wide-complex tachycardia: 1-minute long episode of either polymorphic VT vs torsades on 08/06/24. self-terminated. no shocks/ACLS measures needed to terminate the event fortunately. the tachycardia led to syncope. following his event he was transferred to the ICU for closer monitoring. VT or torsades 2nd to severe LV dysfunction/nonischemic CM. s/p BiV pacer/ICD implantation by Dr Chang Sparks. He remains on beta maria c therapy. He was given written instructions regarding post-op care of his incision as well as restrictions in the setting of his device placement. He will need a brief post-op check in the EP clinic to check the incision, etc. (4) V tach: as above in #3 (5) Tobacco use disorder: Counseled to quit. (6) COVID-19: Patient tested + for such at time of admission. ? of mild pneumonitis seen on CT chest (vs all pulmonary edema from his CHF). Patient had been ill for several weeks with URI/pulmonary symptoms - uncertain of the exact start date of his COVID illness, however. In light of severity of illness he was given IV dexamethasone as well as Remdesivir. On day of discharge he underwent an ambulatory 2-step O2 test --> passed; home O2 not needed. He will finish a few more days of oral dexamethasone at home. (7) Syncope and collapse: 2nd to wide complex tachycardia as above no recurrence since then (8) Type 2 diabetes mellitus: Hemoglobin a1c 6.5% c/w early DM. This was discussed with patient in detail. Jardiance given for his CHF will provide diabetic treatment. Handouts given on diabetes, hemoglobin a1c, meal planning, etc. He was given all necessary testing supplies, glucometer, etc. He will control his DM otherwise with diet alone for now. (9) Alcohol dependence: long-standing history of such beer/liquor only brief periods of sobriety per his family fortunately he did not have signs of withdrawal while here B1 level pending started thiamine 200mg BID alcohol could have played a major role in the development of his cardiomyopathy as noted above (10) CAD (coronary artery disease): s/p left heart cath by Dr Chang Carias -- Findings: LM -normal caliber, no significant disease LAD -medium caliber, 30 to 40% proximal to mid stenosis across takeoff of D1. Remainder of vessel without significant disease and wraps around apex. Medium D1 with 4050% ostial. Circumflex -large-caliber, no significant disease. Gives off medium OM1 and left PLB without significant disease. RCA -medium caliber, dominant, 30% proximal to mid disease, 60-70% mid segment stenosis at takeoff of acute marginal. Distal vessel, PDA without significant disease. Beta maria c, asa, statin, etc all added for such Tobacco & etoh cessation needed (11) LBBB (left bundle branch block): 2nd to non-ischemic CM see above discussion (12) Elevated troponin: minimal elevation - 27 likely myocardial demand ischemia in setting of acute CHF, COVID infection, etc. no evidence of ACS (13) ALBA (acute kidney injury): peak Cr 1.5 appears baseline Cr may be ~1 likely cardiorenal in the setting of severe LV dysfunction he will need BMP as outpatient to ensure stability Notes For Next Care Provider Medication Changes From Visit Addition of asa, atorvastatin, Jardiance, Entresto, lasix prn, meto succinate for heart disease. Dexamethasone taper for COVID. Thiamine course x 30 days. Admission HPI Per Admitting Provider 59 y/o male presenting with progressive SOB, cough, and chest pressure. Symptoms started a few weeks ago with cough, congestion, and shortness of breath. Patient's cough is productive of dry/powdery green mucous. Has had occasional hemoptysis as well. Patient has also noticed worsening chest pressure/SOB when laying flat. Feels more comfortable standing up. He has had BLE ankle/foot swelling for some time. Has noticed increased swelling/tightness of his pants around the waist. No n/v/abdominal pain/calf pain/unilateral swelling. No fevers, but he has been having chills. 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 Was likely exposed to several respiratory irritants at that time without a mask. Friend who worked in the basement with him did also get sick, but improved more quickly. Patient is also a long time smoker. Previously smoking about a PPD, down to 1/2 PPD now. Was a prior heavy drinker for many years. No longer drinking. Patient was given 324 ASA chew, 40 mg IV Lasix, SL nitro, and nitro paste in the ED. Patient CP free upon my interview and breathing much more comfortably. CT Chest with bilateral pleural effusions. There may be an underlying pneumonia as well. Patient started on Zosyn in the ED. Patient has not seen in a doctor in some time, but does have an appointment scheduled for next week for routine care. No current home meds. Discharge Exam gen - looks better today, overall is improved from previous visit neck - no JVD present mouth - MMM heart - RRR, s1 s2, no murmur lungs - decreased BS bases, rales L base; no wheezing abd - soft NT ND BS+ ext - no edema, pulses 2+ b/l feet psych - a/o x 3 chest - dressings intact L upper chest, no hematoma noted Discharge Plan Discharge Items Patient Disposition: Home - Self-Care Reason For Visit: CHEST PAIN, SOB Discharge Diagnosis: 1. New onset SEVERE systolic congestive heart failure / cardiomyopathy 2. COVID-19 with possible pneumonia 3. Coronary artery disease 4. Diabetes - hemoglobin a1c 6.5% 5. Hyperlipidemia 6. Ventricular tachycardia with subsequent placement of defibrillator/pacemaker device 7. Alcohol use 8. Tobacco use Activity: As commented below Activity Comment: no lifting left arm above the shoulder OR behind the neck for 6 weeks Lifting: No more than 5 pounds Lifting Comment: no vigorous use of the right wrist or hand for 5 days Bathing: Keep incision dry Bathing Comment: keep left chest wound dry & Steri-Strips intact until follow- up next week Sexual Activity: Wait until after follow-up appointment Exercise/Sports: Wait until after follow-up appointment Driving/Machine Use: No driving at this time Non-emergency contact: Primary Care Provider and Ui Architect Call non-emergency contact if: you have any medication questions, your symptoms worsen, you have a fever, your wound has increased redness, your wound has increased drainage and your wound pain has increased Follow-up/Referrals: Medhat Sparks MD [Physician] - (Dr Sparks - who implanted your pacemaker/defibrillator - his office will contact you to set up appointment to check the wound on the left chest where the device is.) Germaine Germain PA-C [Physician Information Systems Analyst] - 08/18/24 10:30 am (Congestive Heart Failure Program Appointment Information Early follow up is essential to managing your heart failure. An appointment has been scheduled for you with the [facility] Heart Failure Program within 7 days of discharge. Anticipate this visit to be 30-60 minutes long. Please expect a blow down helper phone call from one of our nurses approximately 48 hours from discharge. They will also be placing an order for lab work to be completed 1-2 days prior to your heart failure follow up appointment. Please be sure to have this done so we can go over the results when you come in. Office Location The cardiology office building is located in front of the hospital at [address] Bring the following with you to your follow-up doctor appointments: Please bring your daily weight log any discharge paperwork all of your medication bottles with you to this visit. ) John Duval MD [Primary Care Provider] - 08/13/24 9:00 am (Hospital follow up scheduled August 13 at 9:[address] Duval) Diet: Carb Consistent or DM2 and Low Sodium (2gm) Fluids: 1500ml (6 cups) Addtl Attending Provider Instructions: Mr Sun, You were hospitalized due to having shortness of breath, cough and chest tightness/discomfort. We discovered that you had COVID-19 infection. We also discovered that you have "cardiomyopathy" which has led to severe, systolic congestive heart failure. Systolic congestive heart failure means that the heart muscle is very weak and the heart cannot pump blood in a normal fashion (see handouts). We suspect that the cardiomyopathy may have developed due to long-standing alcohol use and/or COVID-19 infection. Nutritional deficiencies could have contributed to your cardiomyopathy. There may be other factors yet to be identified that could have led to your heart disease. Dr Chang Carias with [facility] performed a heart catheterization as blocked coronary arteries can cause cardiomyopathy. You do have plaque build-up/hardening of the coronary arteries ("Coronary Artery Disease") but not severe enough to cause the amount of damage that led to your cardiomyopathy. On the same day that you had your heart cath you had an episode of ventricular tachycardia. This led to you passing out. Ventricular tachycardia is a common, abnormal heart rhythm that typically occurs when the heart is weak. Ventricular tachycardia can lead to . In order to treat ventricular tachycardia if it ever happens again Dr Chang Sparks - also of [facility] - implanted a defibrillator/pacemaker in your chest. If you ever have ventricular tachycardia or similar rhythms the device will shock you out of it. During the stay we treated your COVID illness with steroids & Remdesivir. You also received IV furosemide (diuretic/water pill) to remove the excess water that built-up in your lungs from the congestive heart failure/cardiomyopathy. Your breathing has improved with these measures. Recommendations - 1. COVID infection - * plan to spend the next 3 days at home resting and isolating from others (to be on safe side) * if you get to Sunday, 08/11, and you are feeling well, not having fevers, etc you can leave your home, be with others, etc - you are unlikely contagious to others by this point 2. Dexamethasone steroid - this is for your COVID infection - start TOMORROW, 08/09. Take with food. Know that this steroid will raise your blood sugars over the next 7-10 days. 3. Please check your blood sugars once daily. On some days check it first thing in the morning. Other days - at bedtime. And still other days do it before a meal. Keep a log of your sugars so you can see what they are doing day-to-day. I have called in a glucometer and all the necessary supplies to your pharmacy for you. 4. Congestive heart failure medicines - * metoprolol succinate 25mg once daily each morning * Entresto 1 tablet twice daily, first dose tonight * Jardiance 10mg once daily each morning * furosemide diuretic 20mg - take NEEDED for water/fluid weight gains (see discussion below) 5. For coronary artery disease - * aspirin 81mg daily - purchase [id number] * atorvastatin 40mg once daily 6. Take thiamine (vitamin B1) 200mg twice daily x 30 days then stop 7. Please do everything in your power to abstain from alcohol. Know that your family doctor, your family, friends, and others in your community will support you with this goal. Please talk to your family doctor about ways to maintain sobriety. Your heart health depends on this. 8. Limit total salt intake to no more than 2000mg in a 24-hour period. 9. Limit TOTAL fluid consumption to no more than 1500ml in a 24-hour period. This includes all beverages -- water, juice, coffee, soda, milk, etc. 10. Follow-up - see separate section. Return to [facility] if - * you have fevers over 100 degrees * you have worsening shortness of breath * your defibrillator device shocks you * you have any concerns about the appearance of your wound * you have chest pains * any other concerns It was our pleasure to care for you - Happy Thanksgiving, -Dr Craig Addtl Bisque Finisher Provider Instructions: ACTIVITY RECOMMENDATIONS following your pacemaker/defibrillator implantation: * Do not raise the LEFT arm above your shoulder or behind your neck for 6 weeks. SPECIAL CARE INSTRUCTIONS: * If bleeding occurs, apply direct pressure to area for 5 minutes. * Call your doctor if you have severe pain, fever, drainage or bleeding at site. * It is ok to take a shower at this time, but keep the left chest wound dry & Steri-Strips intact (be sure to cover the site when showering) until follow-up next week in Dr Sparks's office. NO TUB BATHS. NO SWIMMING. SKIN IRRITATION: * You may experience some redness and/or swelling in the area around your device. If you have any questions or concerns about your device or the appearance of the wound please contact Dr Sparks's office. - Congestive Heart Failure Instructions - Call 911 and go to the Emergency Room if: * You have tightness or pain in your chest that does not go away with rest or Nitroglycerin * You are very short of breath even with rest Call your doctor if any of the following symptoms or problems start or get worse: * Shortness of breath or difficulty breathing * Wake up at night short of breath * Chest pain * Cough * Swelling of your hands, fee, or legs * More fatigued or tired with your normal activity * Palpitations - sudden fast heart beats WEIGHT * Weigh yourself every morning after using the bathroom. This is one of the most important things to do on a daily basis. * Use the same scale. * Wear the same amount of clothing. * Write your weight down on your chart. * Call your doctor if you gain more than 2-3 pounds in 1-2 days. This is typically one of the first signs of fluid weight gain from congestive heart failure. If you have weight gains as such please START the furosemide diuretic and call the geospatial systems integrator for additional guidance. MEDICATIONS * Use this discharge instruction sheet for instructions. * Take your medications at the time your doctor ordered. * Do not skip a dose of your medicines. * If you miss a dose of medicine, take as soon as possible, but DO NOT DOUBLE A DOSE. * Read your medicine information when you get home. * Know all of the side effects of your medicine. * Call your doctor's office if you have any side effects. * Be sure all of your doctors know what medicine and herbs you take (including cold, flu, and herbal medicine). * Pain Medicine: If you do not get relief from your pain, please call your doctor for help. Take the following with you to your follow-up doctor appointments: * Weight Chart * Medication List * List of questions Do not drink excessive alcohol, beer or wine. Pending Studies at Discharge: Yes Studies:: vitamin B1 level Stand-Alone Forms: My [facility] [employer], Smoking Cessation Medications and DC Order Prescriptions: New atorvastatin 40 mg Tablet 40 mg PO QAM Qty: 30 2RF Rx Instructions: for high cholesterol thiamine HCl (vitamin B1) 100 mg Tablet 200 mg PO BID Qty: 120 0RF aspirin 81 mg Tablet,Delayed Release (Dr/Ec) 81 mg PO QAM Qty: 90 3RF Rx Instructions: purchase [id number] Jardiance 10 mg Tablet 10 mg PO DAILY Qty: 30 2RF Rx Instructions: for diabetes AND congestive heart failure Entresto 24-26 mg Tablet 1 tab PO BID Qty: 60 2RF Rx Instructions: for congestive heart failure furosemide [Lasix] 20 mg tablet 20 mg PO QAM PRN (Reason: edema/swelling or fluid weight gain) Qty: 30 2RF metoprolol succinate 25 mg tablet extended release 24 hr 25 mg PO DAILY Qty: 30 2RF Rx Instructions: for congestive heart failure dexamethasone 2 mg tablet 2 mg PO DIRECTED Qty: 12 0RF Rx Instructions: start 08/09/24, take with food. 3 tabs PO QD x 2 days; 2 tabs PO QD x 2 days; 1 tab PO QD x 2 days. (DME) OneTouch Verio test strips Strip See Rx Instructions .Route Qty: 50 1RF Rx Instructions: Check blood sugars once daily. (DME) lancets [OneTouch Delica Plus Lancet] 33 gauge misc See Rx Instructions .Route Qty: 100 1RF Rx Instructions: Check blood sugars once daily. (DME) lancing device with lancets [OneTouch Delica Plus Lanc Dev] Kit See Rx Instructions .Route Qty: 1 1RF Rx Instructions: check blood sugars once daily (DME) blood-glucose meter [OneTouch Verio Flex meter] [facility] See Rx Instructions .Route Qty: 1 0RF Rx Instructions: As directed Discharge Orders: Discharge Order (Routine); Ordered 08/08/24 Ordered By: Diogenes Tim/Other Patient Handouts: What Is Heart Failure, What Is Dilated Cardiomyopathy?, Living with Cardiomyopathy, CAD, Managing Diabetes: The A1C Test, Diabetes: Meal Planning, Type 2 Diabetes Admission Data Admit Date/Time: 08/06/24 00:11 Attending Provider: Diogenes Craig Admit Provider: Nicole Saul Primary Care Provider: John Duval Other Providers: Enid Kirby; Medhat Carias; Medhat Sparks Other Interventions: Discharge Summary Assessment (RN) Last Done: 08/08/24 15:29 Hospital Stay Data Consultations [facility] - Dr Chang Carias; Dr Chang Sparks [facility] Referral Physical therapy Diabetes Education Procedures Performed Operation Date: 08/07/24 14:00 Actual Procedures p ICD Biventricular Implant(Left) - Medhat Sparks MD s Venogram, Unilateral - Medhat Sparks MD Left heart catheterization - Dr Medhat Carias - Findings: LM -normal caliber, no significant disease LAD -medium caliber, 30 to 40% proximal to mid stenosis across takeoff of D1. Remainder of vessel without significant disease and wraps around apex. Medium D1 with 4050% ostial. Circumflex -large-caliber, no significant disease. Gives off medium OM1 and left PLB without significant disease. RCA -medium caliber, dominant, 30% proximal to mid disease, 60-70% mid segment stenosis at takeoff of acute marginal. Distal vessel, PDA without significant disease. LVEDP -24 Summary: 1. Moderate coronary artery disease * 60-70% mid RCA * 30-40% proximal to mid LAD involving bifurcation of D1. Medium D1 40-50% ostial 2. Elevated intracardiac filling pressure (LVEDP 24) Echocardiogram - 2-step ambulatory oxygen test - PASSED; no home O2 needed Diagnostic Imagining Performed Chest CTA 08/05/24 22:57 Exam(s): CTA CHEST IV Amt: 118 ml optiray 320 EXAM: CT Angiography Chest With Intravenous Contrast CLINICAL HISTORY: Reported shortness of breath and chest pain over the few weeks, increasing over the last 2 days. TECHNIQUE: Axial computed tomographic angiography images of the chest with intravenous contrast. CTDI is 32.8 mGy and DLP is 729.78 mGy-cm. Automated exposure control was utilized for the study. A dose lowering technique was utilized adhering to the principles of ALARA. MIP reconstructed images were created and reviewed. COMPARISON: No relevant prior studies available. FINDINGS: Pulmonary arteries: Accounting for limitations with respiratory artifact, there is no definite evidence for pulmonary embolism. Aorta: The unenhanced thoracic aorta is normal in caliber. No thoracic aortic aneurysm. Lungs: Peribronchial cuffing, most notable in the right lower lobe with diffuse areas of interlobular septal thickening. In addition, there are asymmetric patchy opacities in the central and inferior right upper lobe. Pleural space: Mild to moderate right and moderate left pleural effusions, measuring up to 3.5 cm on the left. In addition, there is a subpulmonic component of the left pleural effusion measuring 4 cm in diameter. No loculation. No pneumothorax. Heart: Cardiomegaly of unknown chronicity with asymmetric dilation of the left ventricle. Trace pericardial effusion. Bones/joints: No acute fracture. No dislocation. Soft tissues: Unremarkable. Lymph nodes: Nonspecific scattered paratracheal and AP window lymph nodes. No enlarged lymph nodes. IMPRESSION: 1. Accounting for limitations with respiratory artifact, there is no definite evidence for pulmonary embolism. 2. Peribronchial cuffing, most notable in the right lower lobe with diffuse areas of interlobular septal thickening. In addition, there are asymmetric patchy opacities in the central and inferior right upper lobe. Findings are most consistent with interstitial edema. The airspace opacities are atypical for asymmetric alveolar edema, which raises the suspicion for subtle aspiration or pneumonia. 3. Mild to moderate right and moderate left pleural effusions, measuring up to 3.5 cm on the left. In addition, there is a subpulmonic component of the left pleural effusion measuring 4 cm in diameter. No loculation. 4. Cardiomegaly of unknown chronicity with asymmetric dilation of the left ventricle. Trace pericardial effusion. Electronically signed by: Aidan Milligan MD 08/05/24 23:37 PM Chest X-Ray 08/08/24 07:00 EXAM: XR chest 2V PA/lateral CLINICAL HISTORY: S/P PACEMAKER EVAL LEAD PLACEMENT EVAL FOR PNEUMOTHORX UNABLE TO RAISE LT ARM DUE TO IMPLANT KAA/HKS/JMF TECHNIQUE: An X-ray image of the chest is obtained in PA, and lateral projections. COMPARISON: 08/05/2024 CT chest FINDINGS: Interval placement of triple leads cardiac pacing. Pulmonary Parenchyma: Mild left pleural effusion. Bilateral prominent bronchial markings with peribronchial thickening. Right midzonal patchy opacities. Heart and Mediastinum: Heart size and shape are normal. No mediastinal widening or masses. No hilar or mediastinal lymphadenopathy. prominent aortic shadow with curvilinear atheromatous calcification. Bony Thorax: The bony thorax appears intact without fractures or deformities. Soft Tissues: Soft tissues overlying the chest wall are unremarkable. IMPRESSION: 1. Interval placement of triple leads cardiac pacing is seen in place. 2. Mild left pleural effusion. 3. Right midzonal patchy opacities, Likely inflammatory/ edema. 4. Clinical and laboratory correlation is recommended. 5. No gross interval changes. Electronically signed by Prateek Gonzalez 08-08-2024 07:50 AM Pending Results Patient Have Any Pending Studies at Discharge: Yes Discharge Instructions Given to Patient (Per Discharging Provider) Mr Sun, You were hospitalized due to having shortness of breath, cough and chest tightness/discomfort. We discovered that you had COVID-19 infection. We also discovered that you have "cardiomyopathy" which has led to severe, systolic congestive heart failure. Systolic congestive heart failure means that the heart muscle is very weak and the heart cannot pump blood in a normal fashion (see handouts). We suspect that the cardiomyopathy may have developed due to long-standing alcohol use and/or COVID-19 infection. Nutritional deficiencies could have contributed to your cardiomyopathy. There may be other factors yet to be identified that could have led to your heart disease. Dr Chang Carias with [facility] performed a heart catheterization as blocked coronary arteries can cause cardiomyopathy. You do have plaque build-up/hardening of the coronary arteries ("Coronary Artery Disease") but not severe enough to cause the amount of damage that led to your cardiomyopathy. On the same day that you had your heart cath you had an episode of ventricular tachycardia. This led to you passing out. Ventricular tachycardia is a common, abnormal heart rhythm that typically occurs when the heart is weak. Ventricular tachycardia can lead to . In order to treat ventricular tachycardia if it ever happens again Dr Chang Sparks - also of [facility] - implanted a defibrillator/pacemaker in your chest. If you ever have ventricular tachycardia or similar rhythms the device will shock you out of it. During the stay we treated your COVID illness with steroids & Remdesivir. You also received IV furosemide (diuretic/water pill) to remove the excess water that built-up in your lungs from the congestive heart failure/cardiomyopathy. Your breathing has improved with these measures. Recommendations - 1. COVID infection - * plan to spend the next 3 days at home resting and isolating from others (to be on safe side) * if you get to Sunday, 08/11, and you are feeling well, not having fevers, etc you can leave your home, be with others, etc - you are unlikely contagious to others by this point 2. Dexamethasone steroid - this is for your COVID infection - start TOMORROW, 08/09. Take with food. Know that this steroid will raise your blood sugars over the next 7-10 days. 3. Please check your blood sugars once daily. On some days check it first thing in the morning. Other days - at bedtime. And still other days do it before a meal. Keep a log of your sugars so you can see what they are doing day-to-day. I have called in a glucometer and all the necessary supplies to your pharmacy for you. 4. Congestive heart failure medicines - * metoprolol succinate 25mg once daily each morning * Entresto 1 tablet twice daily, first dose tonight * Jardiance 10mg once daily each morning * furosemide diuretic 20mg - take NEEDED for water/fluid weight gains (see discussion below) 5. For coronary artery disease - * aspirin 81mg daily - purchase [id number] * atorvastatin 40mg once daily 6. Take thiamine (vitamin B1) 200mg twice daily x 30 days then stop 7. Please do everything in your power to abstain from alcohol. Know that your family doctor, your family, friends, and others in your community will support you with this goal. Please talk to your family doctor about ways to maintain sobriety. Your heart health depends on this. 8. Limit total salt intake to no more than 2000mg in a 24-hour period. 9. Limit TOTAL fluid consumption to no more than 1500ml in a 24-hour period. This includes all beverages -- water, juice, coffee, soda, milk, etc. 10. Follow-up - see separate section. Return to [facility] if - * you have fevers over 100 degrees * you have worsening shortness of breath * your defibrillator device shocks you * you have any concerns about the appearance of your wound * you have chest pains * any other concerns It was our pleasure to care for you - Happy Thanksgiving, -Dr Craig Total Time Total Time Spent Total Time Spent (In Minutes): 60 Coding Level of Care Code 14385 INP/OBS DISCH >30 MIN Diagnoses Acute heart failure with reduced ejection fraction (HFrEF, <= 40%) I50.21 Nonischemic cardiomyopathy I42.8 Wide-complex tachycardia R00.0 V tach I47.20 Tobacco use disorder F17.200 COVID-19 U07.1 Syncope and collapse R55 Type 2 diabetes mellitus E11.9 Alcohol dependence F10.20 CAD (coronary artery disease) I25.10 LBBB (left bundle branch block) I44.7 Elevated troponin R79.89 ALBA (acute kidney injury) N17.9
[2024-08-08] MEDS ORDERED: MAGNESIUM SULFATE 1GM / D5W BAG IV ONE (16:42)
== END 2024-08-08 16:43 | disposition home or self-care (01) | DRG 275 ==
LOC: ED 22:41 → 2S 08-06 00:11 → SUATTDRO 08-06 00:11 → 2S 08-06 03:34 → 1E 08-06 14:53
PROC: EPB.ICD (2024-08-07 14:00)